=== PATIENT | female | born 1945 | race Caucasian/White ===

== ENCOUNTER → 2018-04-05 07:12 | Outpatient (CLI) | payer MEDICARE, SELFPAY ==
[2018-04-05 08:43] LABS: Add Manual Diff / Slide Review NO; Basophils Percent Auto 0.3 % (0-2); Hemoglobin 14.9 g/dL (12.0-16.0); Lymphocytes Percent Auto 21.9 % (25-40); Mean Corpuscular HGB Conc 35.4 % (30-36); Mean Corpuscular Hemoglobin 29.8 PG (26-34); Mean Corpuscular Volume 84.1 fL (80-100); Monocytes Percent Auto 7.5 % (3-14); Neutrophils Absolute Auto 4700 /uL (3000-5900); Neutrophils Percent Auto 67.3 % (50-75); Platelet Count 166 X10^3/uL (150-400); Red Blood Cell Count 4.99 X10^6/uL (4.0-5.2); Red Cell Distribution Width 13.5 % (11.6-14.8)
[2018-04-05 09:10] LABS: Alanine Aminotransferase 47 IU/L (9-52); Albumin 4.6 g/dL (3.5-5.0); Alkaline Phosphatase 76 U/L (38-126); Aspartate Aminotransferase 33 IU/L (14-36); BUN Creatinine Ratio 18.6 (6-22); Bilirubin Total 1.3 mg/dL (0.2-1.3); Calcium 9.9 mg/dL (8.4-10.2); Cholesterol 168 mg/dL (140-199); Estimated Glomerular Filt Rate > 60.0 mL/min (>60); Globulin 2.3 g/dL (1.7-4.1); Glucose 99 mg/dL (80-110); HDL Cholesterol 49 mg/dL (40-60); HEMOLYSIS < 15 (0-50); LDL Cholesterol Calculated 88 mg/dL (<100); Potassium 4.2 mmol/L (3.4-5.1); Sodium 133 mmol/L (137-145); Total Protein 6.9 g/dL (6.3-8.2); Triglycerides 155 mg/dL (35-150)
== END ==
PROVIDERS: PCP Internal Medicine; Visit Provider Internal Medicine
DX: I10 Essential (primary) hypertension (principal); E78.00 Pure hypercholesterolemia, unspecified
CPT/HCPCS: 36415; 80053; 80061; 85025

== ENCOUNTER → 2018-05-08 08:57 | Outpatient (CLI) | payer MEDICARE, SELFPAY ==
[2018-05-08 10:19] LABS: Influenza A and B by PCR Rapid Negative (Negative)
== END ==
PROVIDERS: Family Provider Internal Medicine; PCP Internal Medicine
DX: R68.89 Other general symptoms and signs (principal)
CPT/HCPCS: 87400

== ENCOUNTER 2018-05-23 08:41 | Day surgery (SDC) | payer MEDICARE, SELFPAY ==
[2018-05-23 09:09] VITALS: BP 124/73; PULSE 59; RESP 16; TEMP 37; O2SAT 97
[2018-05-23] MEDS: SODIUM CHLORIDE 0.9% 1,000 ML 200 ML IV (09:15)
--- NOTE | 2018-05-23 10:01 | PM.HP.1 ---
History of Present Illness Date Patient Seen: 05/23/18 Time Patient Seen: 10:01 Chief complaint: [id number] Narrative: [place] and pleasant lady in no distress. Her last colonoscopy was 5 years ago. She is here for a repeat due to a family history of colon cancer in her father. Patient History Surgical History Status post vaginal hysterectomy Family & Social History Family History: Reviewed 05/23/18 by Sarah Akhtar MD Social History: household members none Tobacco & Substance use: Smoking Status Never smoker Meds Home Medications Medication Instructions Recorded Confirmed Type Simvastatin (ZOCOR) 40 mg PO DAILY #0 03/13/12 05/23/18 History hydrochlorothiazide 25 mg PO DAILY #0 03/13/12 05/23/18 History ASPIRIN (Aspir-Low) 81 mg PO DAILY #0 09/12/12 05/23/18 History lisinopril 10 mg PO Q DAY #0 04/24/13 05/23/18 History meloxicam 1 tab PO EVERY OTHER DAY 05/08/18 05/23/18 History timolol 1 % EYE-BOTH DAILY 05/23/18 05/23/18 History Allergies Allergy/AdvReac Type Severity Reaction Status Date / Time iodine [IODINE] Allergy Unknown makes me Unverified 02/20/18 11:53 stop breathing Review of Systems Review of Systems All systems reviewed & are unremarkable except as noted in HPI and below Exam Vital Signs (past 8 hours): - 05/23/18 09:09 Temperature 98.6 F Pulse Rate 59 L Respiratory Rate 16 Blood Pressure 124/73 H Pulse Oximetry 97 Oxygen Delivery Method Room Air Narrative Exam Narrative: Very pleasant well-nourished well-developed lady in no distress HEENT: Normocephalic and atraumatic, pupils equal round reactive to light accommodation with anicteric sclera Lungs: Clear to auscultation bilaterally Heart: Regular rate and rhythm without murmur rub or gallop. Abdomen: Soft, nontender, active bowel sounds Extremities: Warm and well perfused Assessment & Plan Plan: Assessment/Plan Narrative: Very pleasant 72-year-old lady with a family history of colon cancer. We discussed the risks and benefits of colonoscopy and she has expressed a desire to complete the procedure today.
[2018-05-23] MEDS: MIDAZOLAM 5 MG/5 ML VIAL IV (10:16)
[2018-05-23] MEDS: fentaNYL 250 MCG/5 ML INJ IV (10:17)
--- NOTE | 2018-05-23 10:22 | PM.OP.1 ---
Operative Date/Time/Diagnoses Date of procedure: 05/23/18 Time of procedure: 10:22 Pre-op diagnosis: Family history of colon cancer Screening Post-op diagnosis: same Procedure & Clinicians Procedure: Colonoscopy to the cecum Same procedure as scheduled: Yes Indications: Last colonoscopy 5 years ago Surgeon: Sarah Akhtar Click Yes if Unassisted: Yes Anesthesia Type: Sedation (Versed 4 mg, fentanyl 200 mcg) Operative Notes Findings: 1. Excellent prep 2. No polyps or mass lesions 3. No AV malformations 4. Normal mucosa throughout 5. Scattered diverticula in the sigmoid region 6. Grade 1 internal hemorrhoids 7. Two very large external skin tags Closure Type: not applicable Specimen(s): none sent Procedure in detail: After obtaining informed consent, the patient was brought to the GI suite and placed in the left lateral decubitus position on the examination table. After placement of appropriate monitors, the patient was given incremental doses of Versed and Fentanyl until an appropriate level of sedation was achieved. A time out was held per SCOAP protocol. A digital rectal examination was performed and did not reveal any masses or obstructing lesions. The colonoscope was gently passed into the patient's anus and the entire colon navigated to the level of the cecum with minimal difficulty. Once in the cecum, the scope was withdrawn being sure to go before and beyond all mucosal folds and prominences and get an excellent examination. The findings are noted above. At the level of the rectal vault, the scope was retroflexed and the internal anal canal was examined. The scope was straightened and air aspirated from the colon. The instrument was removed from the patient's body and the procedure was concluded. The patient was allowed to awaken from sedation without difficulty and taken to the post-anesthesia care unit in good condition. Total sedation time 16 min Total withdrawal time 8 min 9 sec Complications: none Condition: stable Disposition: PACU Plan for aftercare: 1. Discharge to home 2. Plan for next colonoscopy in 5 years or as clinically indicated
[2018-05-23 10:25] VITALS: BP 109/61; PULSE 66; RESP 12; TEMP 36; O2SAT 97
[2018-05-23 10:30] VITALS: BP 87/54; PULSE 57; RESP 10; O2SAT 94
[2018-05-23 10:35] VITALS: BP 91/57; PULSE 57; RESP 20; O2SAT 95
[2018-05-23 10:40] VITALS: BP 104/67; PULSE 59; RESP 13; TEMP 36; O2SAT 98
[2018-05-23 10:50] VITALS: BP 101/68; PULSE 64; RESP 16; TEMP 36.1; O2SAT 97
--- NOTE | 2018-05-23 11:47 | SUR.PHASEII ---
1109: Discharge instructions reviewed with both Pt and ride home, friend Jesus. All discharge instructions reviewed, IV D\C'd with cannula intact and Pt stable and ready for discharge home and has met discharge criteria.
== END 2018-05-23 11:12 ==
LOC: ENDO 08:42
PROVIDERS: Family Provider Internal Medicine; PCP Internal Medicine; Visit Provider Surgery
PROC: 0DJD8ZZ Inspection of Lower Intestinal Tract, Via Natural or Artificial Opening Endoscopic (ICD-10-PCS; CPT 45378; principal; 2018-05-23 09:45)
DX: Z12.11 Encounter for screening for malignant neoplasm of colon (principal); Z80.0 Family history of malignant neoplasm of digestive organs; K57.30 Diverticulosis of large intestine without perforation or abscess without bleeding; K64.0 First degree hemorrhoids; K64.4 Residual hemorrhoidal skin tags
CPT/HCPCS: G0105; 99152; J2250; J3010

== ENCOUNTER → 2019-09-29 08:36 | Outpatient (CLI) | payer MEDICARE, SELFPAY ==
[2019-09-29 09:53] LABS: Carbon Dioxide 30 mmol/L (22-32); Chloride 93 mmol/L (98-107); HEMOLYSIS 16 (0-50); Potassium 4.4 mmol/L (3.4-5.1); Sodium 134 mmol/L (137-145)
[2019-09-29 09:54] LABS: Add Manual Diff / Slide Review NO; Basophils Absolute Auto 100 /uL (0-100); Eosinophils Absolute Auto 100 /uL (0-450); Eosinophils Percent Auto 1.4 % (2-4); Hematocrit 46.5 % (36-46); Hemoglobin 15.8 g/dL (12.0-16.0); Lymphocytes Absolute Auto 3000 /uL (1100-4500); Mean Corpuscular HGB Conc 34.1 % (30-36); Mean Corpuscular Hemoglobin 31.7 PG (26-34); Mean Corpuscular Volume 93.1 fL (80-100); Monocytes Absolute Auto 800 /uL (0-900); Monocytes Percent Auto 8.4 % (3-14); Neutrophils Absolute Auto 5400 /uL (1500-7000); Neutrophils Percent Auto 57.2 % (50-75); Platelet Count 420 X10^3/uL (150-400); Red Blood Cell Count 4.99 X10^6/uL (4.0-5.2); White Blood Cell Count 9.5 X10^3/uL (4.5-11.0)
== END ==
PROVIDERS: Family Provider Internal Medicine; PCP Internal Medicine; Visit Provider Orthopaedic Surgery
DX: Z01.812 Encounter for preprocedural laboratory examination (principal); M17.11 Unilateral primary osteoarthritis, right knee; Z01.818 Encounter for other preprocedural examination
CPT/HCPCS: 36415; 80051; 85025; 93005

== ENCOUNTER 2019-10-04 14:53 | Observation (INO) | payer MEDICARE, SELFPAY ==
[2019-10-01 08:55] VITALS: BMI 26.6
[2019-10-03] VITALS (10 sets, daily range): BP systolic 127–145; BP diastolic 68–83; PULSE 59–74; RESP 13–20; TEMP 36.4–37.2; O2SAT 93–98; BMI 26.6
--- NOTE | 2019-10-03 06:00 | DI.RAD.S_ITS ---
PROCEDURE: XR KNEE RT 1TO2V INDICATIONS: post op TECHNIQUE: 2 view(s) of the knee acquired. COMPARISON: None. FINDINGS: Bones: Patient is status post knee joint arthroplasty. Hardware components are in expected positions. Visualized bony structures are intact. Soft tissues: Overlying postoperative changes are noted. IMPRESSION: Post right total knee arthroplasty changes with anatomic right knee alignment. Dictated by: Juan Hurtado M.D. on 10/03/2019 at 17:29 Approved by: Juan Hurtado M.D. on 10/03/2019 at 17:29
[2019-10-03] MEDS: LACTATED RINGERS 1,000 ML 42 ML IV ×2 (12:22→15:56)
[2019-10-03] MEDS: ACETAMINOPHEN 325 MG TABLET 975 MG PO ×2 (12:25→22:21)
[2019-10-03] MEDS: PREGABALIN 75 MG CAPSULE PO (12:25)
[2019-10-03] MEDS: CELECOXIB 200 MG CAPSULE PO (12:25)
--- NOTE | 2019-10-03 14:07 | P.OP_ITS ---
Operative Date/Time/Diagnoses Date of procedure: 10/03/19 Time of procedure: 16:05 Pre-op diagnosis: Right knee osteoarthritis Post-op diagnosis: same Procedure & Clinicians Procedure: Right total knee arthroplasty Same procedure as scheduled: Yes Indications: The patient presents today for total knee arthroplasty after failure of conservative treatment. The nature of the procedure including the risks and benefits, alternatives, postoperative course and expected outcome were discussed and all questions answered. Consent was obtained. Operative site confirmed and marked. Surgeon: Luisito Dunlap Associate Loan Officer: Tony Arrington Anesthesia Type: General, Spinal and Local Operative Notes Findings: Severe osteoarthritis with varus alignment. Closure Type: primary Specimen(s): none sent Prosthetic devices, grafts, tissues, transplants, or devices: [employer] BCS: 4 femoral component, 3 tibial component, 9 mm BCS polyethylene tray and 29 x 7.5 mm round patella Applied: implant(s) Estimated Blood Loss (mL): 10 Blood products transfused: none Tourniquet time (min): 47 Procedure in detail: The patient was taken to the operative suite and placed under general and spinal anesthesia. The patient was given prophylactic antibiotics prior to surgery. The patient was also given tranexamic acid, 1 g, just prior to surgery for postoperative hemostasis. The lateral knee was prepped and the joint injected with 20 mL of 1% Lidocaine with epinephrine. The knee was then prepped and draped in usual sterile fashion. The leg was exsanguinated with an Esmarch dressing and the tourniquet raised to 250 torr. A 15 cm anterior incision was made. Next a medial trivector arthrotomy was made. The extensor mechanism was marked to ensure accurate repair. Initial exposing dissection was carried out medially and laterally. The knee was then flexed and the intramedullary femoral guide justin placed. The distal femoral cut was made in 6? of valgus at the +0 position. The femoral size was measured and the appropriate cutting block was then placed and the anterior, posterior and chamfer cuts made. The intramedullary tibial alignment justin was then placed. The guide was set to remove approximately 10 mm from the less affected lateral side. The proximal tibial cut was then made with an oscillating saw. All meniscus and bony debris was then removed. Posterior femoral osteophytes removed with a curved osteotome. Flexion extension gaps were checked. No specific balancing was required other than routine exposure and removal of osteophytes. The soft tissues were then injected with a combination of 20 mL of half percent Marcaine with epinephrine and 20 mL of Exparel. The trial components were then placed. The knee was then extended and the patellar thickness was measured and a cut made removing approximately 7-8 mm of bone. The patella was then sized and drilled. Some excess lateral bone was excised and the patellofemoral ligament released. The knee went into full extension and flexion beyond 120?. There was excellent medial-lateral balance throughout motion. Patellar tracking was excellent. The trial components were removed and the knee was cleansed with Pulsavac irrigation and dried. The final components were cemented with high viscosity vacuum mixed bone cement with antibiotics. The joint was filled with a dilute Betadine solution. The knee was held in extension and the patellar clamped until the cement was adequately cured. The knee was then irrigated. The extensor mechanism was closed with 5 interrupted #1 Vicryl sutures and a running Quill suture at approximately 90 degrees of flexion. The joint was then injected with a combination of 1 g of tranexamic acid and 20 mL of quarter per cent Marcaine with epinephrine. The subcutaneous tissue was closed with 2 0 Vicryl. The skin was closed with kalyn and surgical adhesive. An Aquacel dressing and Blade wrap were then applied. The patient tolerated the procedure well and was returned to recovery room in good condition. Complications: none Post-operative Condition: stable Disposition: PACU Plan for aftercare: [facility] protocol for total knee arthroplasty.
--- NOTE | 2019-10-03 14:07 | PM.PREOP ---
Pre-operative Note Interval Note History & Physical reviewed/Exam performed by Physician: Yes Changes to H&P: No
[2019-10-03] MEDS: CEFAZOLIN 2 GM/100 ML FROZ.PIGGY IV ×2 (14:44→22:19)
[2019-10-03] MEDS: LIDOCAINE 1% W/EPI 20 ML INJ (15:00)
[2019-10-03] MEDS: TRANEXAMIC ACID 1,000 MG VIAL 1000 MG IV (15:09)
--- NOTE | 2019-10-03 15:16 | SUR.OPER ---
Supine on padded OR bed. Pillow under head, arms secured on padded armboards <90 degree abduction. Safety belt across torso. Non-operative leg secured with tape over blanket over lower leg. Operative leg secured in DeMayo/Griffin positioner. Foam padded brace at thigh of operative leg.
[2019-10-03] MEDS: BUPIVACAINE 0.25% W/ EPI (PF) 20 ML, TRANEXAMIC ACID 1,000 MG, SODIUM CHLORIDE 0.9% 10 ML INJ (15:23)
[2019-10-03] MEDS: BUPIVACAINE 0.25% W/ EPI (PF) 40 ML, BUPIVACAINE LIPOSOME 266 MG, SODIUM CHLORIDE 0.9% ... INJ (15:23)
--- NOTE | 2019-10-03 16:32 | SUR.PHASEI ---
Continues sleeping 1632 - dc'd own airway, drowsy, denies pain, nausea. Skin warm and dry, resp unlabored, pleasant.
--- NOTE | 2019-10-03 16:47 | SUR.PHASEI ---
Report called to floor. Pt denies pain, nausea. VSS. Stable and pleasant, drowsy.
--- NOTE | 2019-10-03 17:06 | SUR.PHASEI ---
1653 to room 225, bed down and locked, call light within reach, SCD's on, RN will observe RA sat and put on O2 as needed. Pt awake, oriente, pleasant, no pain/nausea, asking for food and joking with staff. Clothing bag to room. Stable.
[2019-10-03] MEDS: LACTATED RINGERS 1,000 ML 125 ML IV (17:22)
[2019-10-03] MEDS: ASPIRIN EC 81 MG TABLET PO (22:20)
[2019-10-03] MEDS: IBUPROFEN 400 MG TABLET PO (22:21)
[2019-10-03] MEDS: LATANOPROST 0.005% OPHTH 2.5 ML 1 DROPS EYE-BOTH (22:22)
[2019-10-03] MEDS: SIMVASTATIN 40 MG TABLET PO (22:22)
[2019-10-03] MEDS: ONDANSETRON 4 MG/2 ML INJ IV (22:30)
[2019-10-04] VITALS (7 sets, daily range): BP systolic 113–134; BP diastolic 57–79; PULSE 51–73; RESP 16–19; TEMP 36.7–37.3; O2SAT 94–97
[2019-10-04] MEDS: IBUPROFEN 400 MG TABLET PO ×5 (01:01→20:50)
[2019-10-04] MEDS: LACTATED RINGERS 1,000 ML 125 ML IV (02:41)
[2019-10-04] MEDS: METOCLOPRAMIDE 10 MG/2 ML INJ IV (05:27)
[2019-10-04 05:57] LABS: Hematocrit 39.7 % (36-46); Hemoglobin 13.5 g/dL (12.0-16.0)
[2019-10-04] MEDS: CEFAZOLIN 2 GM/100 ML FROZ.PIGGY IV (06:17)
--- NOTE | 2019-10-04 09:28 | P.DS_ITS ---
History of Present Illness History of Present Illness Date Patient Seen: 10/04/19 Time Patient Seen: 09:28 Chief complaint: [id number] Narrative: Postop day 1 right total knee arthroplasty with Dr. Dunlap. Patient doing well this morning pain is controlled on oral medications. She has not been out of bed with physical therapy yet. Denies fevers chills nausea vom iting. Hoping to get out of bed soon would like to get to the restroom and brush her teeth. Discharge Providers Provider Date of admission: 10/03/19 11:39 Discharge Date: 10/04/19 Primary care physician: Luis Henderson MD Consults: 10/03/19 16:59 Consult to Discharge Planning Routine Comment: Consult to Physical Therapy Evaluate & Treat Comment: Physician Instructions: postop TKA protocol Consult to Respiratory Therapy Evaluate & Treat Comment: Physician Instructions: Evaluate and treat Discharge provider: Letitia Allen MD Summary Hospital Course Discharge Diagnosis: Right knee arthritis Hospital Course: Patient was admitted to the hospital status post right total knee arthroplasty with Dr. Dunlap. Tolerated p.o. diet on the floor in her pain has been controlled. Patient will be mobilized with therapy today, if does well anticipate discharge home today versus tomorrow if needs more time. Patient does have help at home and has friends coming later today that would be available. Patient is I[facility] path and has her medications at home. Status at Discharge Cognitive/behavioral status at discharge: oriented Functional status at discharge: uses cane/walker Overall status at discharge: patient is progressing back to baseline Time Spent with Patient Time spent: Less than 30 minutes Exam Vital Signs (past 8 hours): - 10/04/19 04:15 10/04/19 08:00 Temperature 98.9 F 98.0 F Pulse Rate 63 64 Respiratory Rate 16 16 Blood Pressure 134/79 125/64 Pulse Oximetry 96 96 Oxygen Delivery Method Nasal Cannula Oxygen Flow Rate 0 Narrative Exam Narrative: General: Alert oriented no acute distress HEENT exam: Normocephalic atraumatic Respiratory exam: Unlabored on room air Musculoskeletal exam: Moving upper extremities full range of motion no pain. Right lower extremity Blade wrap an Aquacel in place. Thigh is soft. Calf is soft. Demonstrates 5/5 dorsiflexion plantar flexion. SCDs in place. Sensation grossly intact to light touch. Brisk capillary refill. Objective Labs Result Diagrams: 10/04/19 05:45 Labs: Laboratory Results - last 24 hr 10/04/19 05:45 Hgb 13.5 Hct 39.7 Discharge Plan Discharge Plan Patient Disposition: Home Discharge orders & Medications Prescriptions: New aspirin 81 mg Tablet,Delayed Release (Dr/Ec) 81 mg PO BID Qty: 60 RF: 0 Continued simvastatin 40 mg Tablet 40 mg PO BEDTIME Qty: 0 RF: 0 hydrochlorothiazide 12.5 MG tablet 25 mg PO BEDTIME Qty: 0 RF: 0 timolol 0.5 % Drops 1 drp EYE-BOTH QAM RF: 0 latanoprost 0.005 % Drops 1 drp EYE-BOTH BEDTIME RF: 0 meloxicam 15 mg Tablet 15 mg PO DAILY RF: 0 lisinopril 10 mg Tablet 10 mg PO DAILY RF: 0 Discontinued aspirin 81 mg Tablet,Delayed Release (Dr/Ec) 81 mg PO DAILY Qty: 0 RF: 0 Follow up/Referrals: Luisito Dunlap MD [Physician] - (Patient has appointment 10/08/2019) Luis Henderson MD [Primary Care Provider] - Diet/Activity/Treatments Diet: Diet as Tolerated Activity: Weightbear as tolerated Skin/Wound/Dressing Care Report to your healthcare provider any signs of infection, such as:: chills, fever, night sweats, increased pain, unusual drainage and unusual redness Dressing: Keep incision clean dry and intact. May shower with Aquacel dressing Visit Report/Discharge Packet Instructions: DI for Knee Replacement Discharge Data Primary Care Provider: Luis Henderson V Quality VTE Deep Vein Thrombosis/Pulmonary Embolism Present on Admission: No
[2019-10-04] MEDS: TIMOLOL 0.5% OPHTH 1 DROPS EYE-BOTH (09:55)
[2019-10-04] MEDS: ASPIRIN EC 81 MG TABLET PO ×2 (09:57→20:49)
[2019-10-04] MEDS: ACETAMINOPHEN 325 MG TABLET 975 MG PO ×3 (09:57→20:49)
--- NOTE | 2019-10-04 10:33 | PT.IIE ---
Current Diagnoses Unilateral primary osteoarthritis, right knee (10/03/19) Surgery Performed Operation Date: 10/03/19 13:45 Actual Procedures p Total Knee Arthroplasty(Right) - Luisito Dunlap MD Surgical History (Last Updated 10/01/19 @ 09:34 by Carla Olivas RN) History of colonoscopy (Acute) Hx of bilateral cataract extraction (Acute) Hx of oral surgery (Acute ~1996) Hx of tonsillectomy (Acute) Status post vaginal hysterectomy (~1975) Medical History (Last Updated 10/01/19 @ 09:24 by Carla Olivas RN) Depression (Acute) Glaucoma (Acute) Herniated disc (Acute) HLD (hyperlipidemia) (Acute) HTN (hypertension) (Acute) Osteoarthritis (Acute) Osteopenia (Acute) Pneumonia (Acute) Skin cancer (Acute) Physical Therapy Inpatient Evaluation/Re-Eval M1 PT/OT-IP Prior Functional Status Start: 10/04/19 12:49 Freq: NEEDED Status: Active Protocol: Document 10/04/19 12:50 [facility] (Rec: 10/04/19 13:07 [facility] [id number]) Medical Review Prior Functional Status Medical History Reviewed Yes Diet/Fluid Consistency Regular Communication WNL Mobility and Gait Indep without AD but reports she was limping quite a bit Activities of Daily Living and IADL's indep w/ADLs & home chores Social History Household Members none Living Arrangements House Number of Floors (Floors) Two Floors Number of Stairs To Enter/Railing? 1 LEEANN Home Environment Walk in Shower Home Equipment Front Wheel Walker,Raised Toilet Seat Without Armrests Employment Status Retired Additional Social History Comment Pt has friend that is able to assist until she leaves town Sunday night, but after that will be on her own. M2 PT-IP Current Condition Start: 10/04/19 12:49 Freq: NEEDED Status: Active Protocol: Document 10/04/19 12:50 [facility] (Rec: 10/04/19 13:07 [facility] [id number]) Physical Therapy Current Condition Current Condition Evaluation Date 10/04/19 Treatment Diagnosis R TKA Onset Date 10/03/19 Weight Bearing Status Weight Bearing Status Weight Bear as Tolerated M3 PT-IP Subjective Start: 10/04/19 12:49 Freq: NEEDED Status: Active Protocol: Document 10/04/19 12:50 [facility] (Rec: 10/04/19 13:07 [facility] [id number]) Subjective Physical Therapy Visit Type Type Initial Evaluation Visit Start Time 09:46 Visit Stop Time 10:33 Total Visit Minutes 47 Number of MANGLE TENDER Visits 0 Physical Therapy Visit Comments Patient Comments Pt reports she lives alone but her friend can stay with her until she leaves town Sunday night. Therapy Pain Assessment Pain When Pain Assessed During Mobility Pain Present Pain Present Pain Reported Location R knee Intensity 2 Scale Used Numeric (1 - 10) Pain Management Techniques Apply Cold,Re-positioning M4 PT-IP Mobility and Gait Start: 10/04/19 12:49 Freq: NEEDED Status: Active Protocol: Document 10/04/19 12:50 [facility] (Rec: 10/04/19 13:07 [facility] [id number]) PT-Bed Mobility Assessment Supine to Sit Supine to Sit Standby Assistance Scooting Scooting to Edge of Bed Standby Assistance PT-Transfer Assessment Sit to and From Stand Sit to and from Stand Contact Guard Assistance,Use of Upper Extremities Equipment Transfer Assistive Device Gait Belt,Front Wheeled Walker Orthotic/Prosthetic Devices or Brace: No Transfers Transfer Destination Chair Transfer Technique Stand Step Pivot Transfer Ability Level of Assist Contact Guard Assistance Comments Mobility Comments Pt stood from bed and transfered to chair to allow PT to adjust walker height. Pt was able to ambulate in rodriguez and to bathroom and stood from toilet CGA without use of grab bars. She was able to stand at sink SBA to brush her teeth and wash her face. Gait Assessment Gait Gait Assistance Required: Contact Guard Assist Distance (Feet) 100 Able to Maintain Weight Bearing Status Yes During Gait Assistive Devices Assistive Device Gait Belt,Front Wheeled Walker Orthotic/Prosthetic Devices or Brace: No Gait Deviations General Gait Pattern Antalgic,Decreased Stride Length,Step-to Gait Factors Limiting Gait Function Factors Limiting Gait Function Decreased Activity Tolerance, Decreased Strength,Limited Range of Motion,Pain Comments Gait Comments Pt able to amb down hallway with FWW with cueing for sequencing of LE and was able to navigate in bathroom CGA. PT-Balance Assessment Sitting Balance and Reactions Static Sitting Balance Ability Good Dynamic Sitting Balance Ability Good Standing Balance and Reactions Static Standing Balance Ability Good Dynamic Standing Balance Ability Good Device Used FWW M5 PT-IP Objective Assessments Start: 10/04/19 12:49 Freq: NEEDED Status: Active Protocol: Document 10/04/19 12:50 [facility] (Rec: 10/04/19 13:07 [facility] [id number]) Orientation Orientation/Cognition Level of Alertness Alert Orientation Name,Place,Situation Language Function Ability No Deficits Noted Safety Awareness Understands Safety Issues Memory Description No Deficits Noted Gross Range of Motion Lower Extremity ROM Assessment Right Impaired Strength Lower Extremity Strength Assessment Right Impaired Muscle Tone Muscle Tone WNL No M6 PT-IP Treatment Start: 10/04/19 12:49 Freq: NEEDED Status: Active Protocol: Document 10/04/19 12:50 [facility] (Rec: 10/04/19 13:07 [facility] [id number]) Physical Therapy Treatment Exercises Exercises Ankle Pumps Education Education Provided Weight Bearing Status,Post-Op Packet,Safety Other Treatments Other Treatment Performed discussed prep of meals with her friend there for the rest of the week M7 PT-IP Assessment and Plan Start: 10/04/19 12:49 Freq: NEEDED Status: Active Protocol: Document 10/04/19 12:50 [facility] (Rec: 10/04/19 13:07 [facility] [id number]) PT Summary Assessment and Plan Potential Rehabilitation Potential Good Status of Condition at Evaluation Evolving Summary Impairments Pain,ROM,Strength,Balance,Bed Mobility,Transfers,Gait, Activity Tolerance Progress Towards Goals Progressing Toward Goals Assessment Summary Pt presents day 1 s/p R TKA with good pain control at this time and limited pain with mobility. She is motivated to get home but is concerned that she will only have her friend there through sunday. She has 2 stories,b ut does not use the 2nd story. Pt will not have assist after Sunday and discussed some concerns with this as far of how to set up at home. Goals Bed Mobility Goal Independent Transfer Goal Independent Gait Goal Independent Gait Distance 150ft Other Goals up/down from 1 step Days to Meet Goals 4 Frequency of Treatment Frequency Of Treatment Twice a Day Treatment Plan Physical Therapy Treatment Plan Bed Mobility Training,Transfer Training,Gait Training, Therapeutic Exercise,Balance Retraining,Post Op Education, Discharge Planning,Hot or Cold Pack,Neuromuscular Re-ed, Manual Therapy Other Recommendations and Next Treatment up/down step, gait, TKA Focus exercise review, discuss OP PT plan Recommendations To Nursing Amount of Assist Needed 1 Person Assist Discharge Recommendations PT Discharge Recommendations Home with Assistance,Home Health,Outpatient PT Other Discharge Recommendations HH vs OP PT
[2019-10-04] MEDS: SODIUM CHLORIDE 0.9% FLUSH 10 ML IV ×2 (13:03→20:48)
[2019-10-04] MEDS: OXYCODONE IR 5 MG TABLET PO ×2 (14:23→20:50)
--- NOTE | 2019-10-04 14:41 | CM.DANOTE ---
DCP Assessment: EMR reviewed: Patient is a 74 yr old female who was admitted for Rt TKA preformed by Dr. watts. Patients PCP is Dr. Henderson. CM met with patient and patients friend Rianna at the bedside and explained CM role. Patient currently lives alone in a two level home but is able to stay on the ground floor where her bedroom, bathroom, kitchen and living room are. Patient was alert and oriented x3 during CM visit. Patient is I at baseline with all ADL's and drives her own vehicle. patients friend Rianna will be staying with the patient for the next four days to help with recovery. Patient also has a friend who lives near by Naida Resendiz who will be available once patients friend goes home as well as a son who lives locally. PT evaluation done and suggested home with assistance or possible HH once patients friend leaves. CM will look into possible HH options if patient is interested. I:1st: medicare 2nd: AARP Plan: D/C home with friend when medically stable. CM discussed HH options with patient and patient state that she should be fine at home with her friends and her son who lives near by. No D/C planning needs noted at this time CM department will Follow patient to determine if any new D/C planning needs arise prior to D/C. Kasandra Nash RN. Discharge Planning/Care Management CM Discharge Assessment Start: 10/04/19 14:37 Freq: Status: Active Protocol: Document 10/04/19 14:38 HS (Rec: 10/04/19 14:41 HS [id number]) Discharge Planning Assessment Assigned Flat Folder Kasandra Nash RN DPOA/Assigned Designee Name Ge Sheikh (son) Contact Information [phone] Advance Directives? Yes: Working on one History Provided By Patient Has Patient been admitted in last 30 No days? Prior Living Arrangements House Household Members none Type of transporation used prior to Drives own vehicle admit Independent with ADL's Yes Is patient alert and oriented? Yes Caregiver for Another No DME Already Rented / Owned Bath Bench,FWW / Walker,Cane Patient/Family Preference OP PT Therapy Discharge Plan Home Whiteboard Updated in Patient Room with Yes name and ext. # of Flat Folder Review Status In Process Next Review Type Continued Stay Review Pre-Anesthesia Assessment Start: 10/01/19 08:55 Freq: Status: Active Protocol: Document 10/01/19 08:55 CAB (Rec: 10/01/19 09:48 CAB [id number]) Pre-Anesthesia Assessment PAC Comment Pre-op EKG @ 09/29/[address] Mauricio. No prior EKG available for comparison. Pt is asymptomatic, ok to proceed Preferred Name Angy Patient Information Reviewed Via Phone Assessment Assessment Completed With Patient H&P Completed Within 30 Days Yes Diagnostic Results BMP/CMP,CBC,EKG Comment Labs/EKG @ 09/29/19 Primary Care Provider Luis Henderson Seen Specialist in Last 12 Months Yes Specialist Seen Technical Service Engineer,Orthopedist Comment PCP visit 03/11/19 scanned to record Primary Language Guinean Dater Assembler Required No Height 167.64 cm Weight 74.843 kg Body Mass Index (BMI) 26.6 Hearing Ability Normal Visual Impairment No Limitations Visual Assist None Dentition Type Teeth, Natural Present Barriers to Learning None Hx Anesthesia Reactions No Hx Family Anesthesia Reaction No Hx Malignant Hyperthermia No Hx Blood Transfusions No Anesthesia Review Requested Yes: Vika requested: abnormal pre-op EKG alcohol intake current alcohol intake frequency a few times a week Smoking Status Former smoker how long ago did patient quit smoking Quit 1968 Substance Use Type does not use Pain Present Pain Reported Musculoskeletal Symptoms Abnormal Gait,Difficulty Walking,Joint Pain History of Falling (Recent or History of No ) Patient is completely paralyzed or No completely immobile Comment My balance is shot Is patient on oxygen? No Does patient have HERCULES/SOB No Hx Sleep Apnea No CPAP/BIPAP use not prescribed Currently Taking a Beta Scott No Can You Climb a Flight of Stairs Without Yes SOB Hx Chest Pain No Hx SOB No Hx Syncope or Dizziness No Anti-Coagulant Therapy No Has a Medical Van Driver No Cardiac Testing No Hx Pacemaker/ICD No Pacemaker Rep Required? No Cardiac Clearance Received Not Applicable Diet Type At Home Regular dysphagia No Urinary Catheter Present No Hx Urinary Self Catheterization No Diabetes No Patient No Lactating No Hx Drug Resistant Organism No Presence of External or Internal Medical No Devices Have you traveled outside the [place] Yes: [place] 08/25/19-09/09/19 States in the last 30 days? Marital Status Lives With none Prior Living Arrangements House Number of Floors (Floors) Two Floors Support System Child/Children,Friend(s) Does the Patient Have Assistance After Yes Surgery Patient Discharge Plan Description Return Home Comment Friends will stay w/pt to assist with care at de Feels Safe in Current Environment Yes Been Physically Hurt or Threatened By a No Person in Current Environment Do you have thoughts of harming yourself None or others? Are you currently considering suicide? No Do you have a plan to hurt yourself or No Plan others? Do You Have Any Spiritual Beliefs That No May Affect Your HC Choices? Do You Have Any Cultural Practices That No May Affect Your HC Choices? Spiritual Referral None Who Can We Speak to About Patient's Care Family, friends Identifying Code for Release of Patient Declines to issue Information Health Care Proxy/Next of Kin Ge Sheikh (ex-) Health Care Proxy Emergency Contact Name Mitesh (son) Emergency Contact or [phone] Advance Directives? Yes: Working on one Power of Java Golden Gate Developer Yes Power of Java Golden Gate Developer Name Mitesh- Seferino Power of Java Golden Gate Developer PAC Instructions Do not shave/clip surgical site,Durable medical equipment ,Medications to take/avoid, Nasal antibiotic,No ETOH/ petroleum product on skin DOS, NPO,Pre-surgical wash,Sturdy shoes/comfortable clothes,Do not bring valuables and remove jewelry
--- NOTE | 2019-10-04 14:45 | PC.NURSE ---
Shift summary: Alert and oriented X3. Dressing/MIGUEL ÁNGEL wrap to R knee C/D/I. CMS+, PP+, feet pink/warm, cap refill <2 sec. Reporting increasing pain in R knee over the course of the day. Medicated with her first dose of Oxycodone (5 mg) approx. 1430. Tolerating PO's without issue, VSS. Saline locked IV. Resting back in bed now after ambulating in halls with PT, fresh ice to R knee. Able to make needs known and has been calling appropriately. Light within reach, bed alarm on.
--- NOTE | 2019-10-04 15:05 | PT.IPTN ---
Current Diagnoses Unilateral primary osteoarthritis, right knee (10/03/19) Surgery Performed Operation Date: 10/03/19 13:45 Actual Procedures p Total Knee Arthroplasty(Right) - Luisito Dunlap MD Physical Therapy Treatment Note M2 PT-IP Current Condition Start: 10/04/19 12:49 Freq: NEEDED Status: Active Protocol: Document 10/04/19 12:50 LR (Rec: 10/04/19 13:07 LR [id number]) Physical Therapy Current Condition Current Condition Evaluation Date 10/04/19 Treatment Diagnosis R TKA Onset Date 10/03/19 Weight Bearing Status Weight Bearing Status Weight Bear as Tolerated M3 PT-IP Subjective Start: 10/04/19 12:49 Freq: NEEDED Status: Active Protocol: Document 10/04/19 14:12 LJ (Rec: 10/04/19 15:04 LJ [email or web address]) Subjective Physical Therapy Visit Type Type Treatment Note Visit Start Time 14:12 Visit Stop Time 14:37 Total Visit Minutes 25 Physical Therapy Visit Comments Patient Comments Pt willing to do therapy Therapy Pain Assessment Pain When Pain Assessed During Mobility Pain Present Pain Present Pain Reported M4 PT-IP Mobility and Gait Start: 10/04/19 12:49 Freq: NEEDED Status: Active Protocol: Document 10/04/19 14:12 LJ (Rec: 10/04/19 15:04 LJ [id number]) PT-Bed Mobility Assessment Rolling Type of Rolling Log Rolling Level of Assist Standby Assistance Sit to Supine Sit to Supine Standby Assistance PT-Transfer Assessment Sit to and From Stand Sit to and from Stand Contact Guard Assistance,Use of Upper Extremities Equipment Transfer Assistive Device Gait Belt,Front Wheeled Walker Orthotic/Prosthetic Devices or Brace: No Transfers Transfer Destination Bed,Toilet Transfer Technique Stand Step Pivot Transfer Ability Level of Assist Contact Guard Assistance Comments Mobility Comments Pt CGA standing from chair. Ambulated in hallway and back to room then into toilet. Sit< >stand to/from toilet using grab bar and FWW. Pt SBA to CGA with min cueing Gait Assessment Gait Gait Assistance Required: Contact Guard Assist Distance (Feet) 100 Able to Maintain Weight Bearing Status Yes During Gait Assistive Devices Assistive Device Gait Belt,Front Wheeled Walker Orthotic/Prosthetic Devices or Brace: No Gait Deviations General Gait Pattern Antalgic,Decreased Stride Length,Step-to Gait Factors Limiting Gait Function Factors Limiting Gait Function Decreased Activity Tolerance, Decreased Strength,Limited Range of Motion,Pain Comments Gait Comments Pt CGA for ambulation in hallway. Pt using FWW properly and using proper posture during ambulation,. M5 PT-IP Objective Assessments Start: 10/04/19 12:49 Freq: NEEDED Status: Active Protocol: Document 10/04/19 12:50 LR (Rec: 10/04/19 13:07 [facility] [id number]) Orientation Orientation/Cognition Level of Alertness Alert Orientation Name,Place,Situation Language Function Ability No Deficits Noted Safety Awareness Understands Safety Issues Memory Description No Deficits Noted Gross Range of Motion Lower Extremity ROM Assessment Right Impaired Strength Lower Extremity Strength Assessment Right Impaired Muscle Tone Muscle Tone WNL No M6 PT-IP Treatment Start: 10/04/19 12:49 Freq: NEEDED Status: Active Protocol: Document 10/04/19 14:12 LJ (Rec: 10/04/19 15:04 LJ [id number]) Physical Therapy Treatment Education Education Provided Safety M7 PT-IP Assessment and Plan Start: 10/04/19 12:49 Freq: NEEDED Status: Active Protocol: Document 10/04/19 14:12 LJ (Rec: 10/04/19 15:04 LJ [id number]) PT Summary Assessment and Plan Potential Rehabilitation Potential Good Status of Condition at Evaluation Evolving Summary Impairments Pain,ROM,Strength,Balance,Bed Mobility,Transfers,Gait, Activity Tolerance Assessment Summary Pt with increased pain this afternoon. Ambulation in hallway same distance as morning. Discussed safet;y issues with pt for at hhome while alone. Next tx discuss OP PT arrangements and step trial Goals Bed Mobility Goal Independent Transfer Goal Independent Gait Goal Independent Gait Distance 150ft Other Goals up/down from 1 step Days to Meet Goals 4 Frequency of Treatment Frequency Of Treatment Twice a Day Treatment Plan Physical Therapy Treatment Plan Bed Mobility Training,Transfer Training,Gait Training, Therapeutic Exercise,Balance Retraining,Post Op Education, Discharge Planning,Hot or Cold Pack,Neuromuscular Re-ed, Manual Therapy Other Recommendations and Next Treatment up/down step, gait, TKA Focus exercise review, discuss OP PT plan Recommendations To Nursing Amount of Assist Needed 1 Person Assist Discharge Recommendations PT Discharge Recommendations Home with Assistance,Home Health,Outpatient PT Other Discharge Recommendations HH vs OP PT
--- NOTE | 2019-10-04 16:07 | PC.NURSE ---
Addendum entered by Dulce Billings R.N. 10/04/19 19:23: Remains up in recliner until after evening meal. Took 100% diet without any c/o nausea. Assist x 1 with walker to bed. Requires reminder to keep head up and stand tall. Blade wrap intact to right knee. Declines need for further analgesia. Ice to right knee. BL calf scd's in place. BL pedal pulses present with doppler BL. Bed alarm set and use of call light reinforced. Original Note: Pt awake and alert during bedside shift report. Resting quietly in bed with visitor present in room. O.T. arrives to mobilize and work with pt.
--- NOTE | 2019-10-04 16:12 | OT.IP.EVAL ---
Current Diagnoses Unilateral primary osteoarthritis, right knee (10/03/19) Surgery Performed Operation Date: 10/03/19 13:45 Actual Procedures p Total Knee Arthroplasty(Right) - Luisito Dunlap MD Past Medical History (Last Updated 10/01/19 @ 09:24 by Carla Olivas, RN) Depression (Acute) Glaucoma (Acute) Herniated disc (Acute) HLD (hyperlipidemia) (Acute) HTN (hypertension) (Acute) Osteoarthritis (Acute) Osteopenia (Acute) Pneumonia (Acute) Skin cancer (Acute) Surgical History (Last Updated 10/01/19 @ 09:34 by Carla Olivas RN) History of colonoscopy (Acute) Hx of bilateral cataract extraction (Acute) Hx of oral surgery (Acute ~1996) Hx of tonsillectomy (Acute) Status post vaginal hysterectomy (~1975) Occupational Therapy Inpatient Evaluation/Re-Eval M1 PT/OT-IP Prior Functional Status Start: 10/04/19 12:49 Freq: NEEDED Status: Active Protocol: Document 10/04/19 16:12 PJJordana (Rec: 10/04/19 18:10 HUNTER [id number]) Medical Review Prior Functional Status Medical History Reviewed Yes Diet/Fluid Consistency Regular Communication WNL Mobility and Gait Pt states she was walking without a device, but was limping due to knee pain. Activities of Daily Living and IADL's Pt states she was independent within all self care, IADLS including driving. Pt lives alone. Prior Functional Level (Other details) Pt volunteers at [facility] . Social History Household Members none Living Arrangements House Number of Floors (Floors) Two Floors Number of Stairs To Enter/Railing? 1 stair to enter, pt will stay on main level of home Home Environment Standard Height Toilet,Walk in Shower Home Equipment Front Wheel Walker,Raised Toilet Seat Without Armrests, Shower Seat with Backrest,Grab Bars In Shower Employment Status Retired Additional Social History Comment pt states she will borrow suction grab bar and shower seat. M2 OT-IP Current Condition Start: 10/04/19 17:50 Freq: Status: Active Protocol: Document 10/04/19 16:12 PJJordana (Rec: 10/04/19 18:10 NOEL [id number]) Occupational Therapy Current Condition Current Condition Evaluation Date 10/04/19 Treatment Diagnosis decr'd self care, IADLS s/p R TKA Diagnosis Onset Date 10/03/19 Post Operative Precautions Other Precautions fall risk Weight Bearing Status Weight Bearing Status Weight Bear as Tolerated M3 OT- IP Subjective and Pain Start: 10/04/19 17:50 Freq: Status: Active Protocol: Document 10/04/19 16:12 PJM (Rec: 10/04/19 18:10 PJM [id number]) OT- Subjective Occupational Therapy Visit Type Type Initial Evaluation Visit Start Time 15:27 Visit Stop Time 16:12 Total Visit Minutes 45 Notes Pt's friend will stay with her for 1 night after d/c and will assist with home setup and jig and fixture repairer. Occupational Therapy Visit Comments Patient Comments My knee feel pretty good right now. I had some oxycodone before you came. Patient/Caregiver Goals to return to independent living alone, to be able to walk without pain OT Pain Assessment Pain When Pain Assessed After Treatment Pain Present Pain Present Pain Reported Location R knee Intensity 5 Scale Used Numeric (1 - 10) Description Aching,Acute Pain Behaviors Guarding Management Techniques Apply Cold,Distraction, Elevation,Timing of Activity with Medications M4 OT- IP ADL's Start: 10/04/19 17:50 Freq: Status: Active Protocol: Document 10/04/19 16:12 PJM (Rec: 10/04/19 18:10 PJM [id number]) OT [id number] General Evaluation Self-Feeding Ability Independent OT ADL-Grooming General Evaluation Grooming Ability Standby Assistance Areas Needing Assistance Face Washing Comments OT Grooming Comments seated in chair OT ADL-Oral Care Comments Oral Care Comments did not occur OT ADL-Dressing General Eval Upper Body Dressing Ability Independent Lower Body Dressing Ability Independent Areas Needing Assistance Retrieving/Set-up of Clothing Comments OT Dressing Comments Provided education re: adapted techniques due to R knee pain/stiffness. 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 OT ADL-Toileting General Evaluation Toileting Ability Independent Comments OT Toileting Comments recommend incontinent pad as pt has urinary urgency at times OT ADL-Bathing Comments OT Bathing Comments provided education re: methods to reduce fall risk and equipt options M5 OT- IP IADL's Start: 10/04/19 17:50 Freq: Status: Active Protocol: Document 10/04/19 16:12 PJM (Rec: 10/04/19 18:10 PJM [id number]) OT-Instrumental Activities of Daily Living Deficits IADL Deficits Identified Deficits Home Safety Awareness Awareness of Need for Assistance at Home Good Awareness Ability to Problem Solve Emergency Able to Problem Solve Situations Home Safety Comments Provided education re: methods to carry objects, including food items, with FWW, optimal chair selection and use of cell phone as Lifeline at home . Medication Management Medication Management No Deficits Identified Money Management Money Management No Deficits Identified Meal Preparation Meal Preparation Comments Provided education re: adapted techniques with FWW Aviation Survival Technician Aviation Survival Technician Caregiver Provides Assist Aviation Survival Technician Comments friends to assist until pt able Driving Driving Caregiver Provides Assist Driving Comments friends to assist until pt able M6 OT- IP Functional Cognition Start: 10/04/19 17:50 Freq: Status: Active Protocol: Document 10/04/19 16:12 NOEL (Rec: 10/04/19 18:10 [facility] [id number]) Cognitive Factors Limiting Selfcare Function Cognitive Ability Level of Alertness Alert Patient Orientation Name,Age,Birthday,Month,Date, Year,Day of Week,Place, Situation Attention Span Ability Capable of Focused Attention, Capable of Sustained Attention Ability to Follow Commands Able to Follow One Step Commands Safety Awareness Underestimates Need for Assistance Problem Solving Ability Needs Assist to Identify Solutions Executive Function Ability Unable to Remember Details Cognitive Comments Cognitive Assessment Comments Pt appears mildly over sedated as she is having difficulty recalling some details about up coming appointments and needs min cues to problem solve adapted ADL/IADL techniques. Discussed with RN . Recommend bed/chair alarm. OT- Vision and Hearing OT- Hearing Assessment OT- Hearing Assessment WFL OT- Vision Assessment Visual Acuity WFL M7 OT- IP Mobility and Balance Start: 10/04/19 17:50 Freq: Status: Active Protocol: Document 10/04/19 16:12 NOEL (Rec: 10/04/19 18:10 [facility] [id number]) OT- Bed Mobility Assessment Supine to Sit Supine to Sit Assist Standby Assistance Scooting Scooting to Edge of Bed Standby Assistance OT-Transfer Assessment Sit to and From Stand Sit to and from Stand Contact Guard Assistance,1 Person Assistance Transfers Transfer Ability Contact Guard Assistance,1 Person Assistance Technique Transfer Destination Chair Transfer Technique Stand Step Pivot Devices Transfer Assistive Devices Gait Belt,Front Wheeled Walker OT- Gait Assessment Gait Gait Assistance Required: Contact Guard Assist Distance (Feet) 3 Assistive Devices Assistive Device Gait Belt,Front Wheeled Walker Comments Gait Ability Comments pt needs verbal cues for gait sequence OT- Balance Assessment Sitting Balance and Reactions Static Sitting Balance Ability Good Dynamic Sitting Balance Ability Good Standing Balance and Reactions Static Standing Balance Ability Good M8 OT- IP Objective Assessments Start: 10/04/19 17:50 Freq: Status: Active Protocol: Document 10/04/19 16:12 PJM (Rec: 10/04/19 18:10 PJM [id number]) OT Gross Range of Motion Upper Extremity Range of Motion Assessment Within Functional Limits OT Strength Upper Extremity Strength Assessment Within Functional Limits OT- Coordination Assessment Comments Coordination Comments BUE WFL OT-Muscle Tone Assessment Muscle Tone WNL Yes OT Sensation Assessment Comments Summary Comments Pt denies BUE deficits Edema Edema Present Edema Comments min+ edema R lower leg and foot M9 OT- IP Assessment and Plan Start: 10/04/19 17:50 Freq: Status: Active Protocol: Document 10/04/19 16:12 PJM (Rec: 10/04/19 18:10 PJM [id number]) OT Summary Assessment and Plan Potential Rehabilitation Potential Good Analytic Complexity at Evaluation Low Summary OT Impairments Pain Assessment Summary Low complexity OT assessment completed on this 74 yr old female s/p RTKA who lives alone. All OT education completed in one visit re: adapted ADL/IADL techniques and home safety. Provided education re: bathroom safety equipt options and long bath sponge provided at pt request. Pt plans to d/c home tomorrow with friend to stay with her for one night and then intermittent assist from friends and neighbors PRN. No further OT services needed. Frequency of Treatment Frequency Of Treatment Discharge Discharge Recommendations OT Discharge Recommendations Home with Assistance
[2019-10-04] MEDS: LATANOPROST 0.005% OPHTH 2.5 ML 1 DROPS EYE-BOTH (20:48)
[2019-10-04] MEDS: SIMVASTATIN 40 MG TABLET PO (20:49)
[2019-10-05 00:25] VITALS: BP 128/63; PULSE 63; RESP 16; TEMP 36.3; O2SAT 98
[2019-10-05] MEDS: IBUPROFEN 400 MG TABLET PO ×4 (00:35→12:15)
[2019-10-05] MEDS: OXYCODONE IR 5 MG TABLET PO ×2 (00:35→11:27)
[2019-10-05 04:00] VITALS: BP 125/58; PULSE 55; RESP 16; TEMP 36.4; O2SAT 97
[2019-10-05 07:55] VITALS: BP 139/77; PULSE 53; RESP 16; TEMP 36.5; O2SAT 99
[2019-10-05] MEDS: LISINOPRIL 10 MG TABLET PO (08:36)
[2019-10-05] MEDS: ACETAMINOPHEN 325 MG TABLET 975 MG PO (08:36)
[2019-10-05] MEDS: ASPIRIN EC 81 MG TABLET PO (08:36)
[2019-10-05] MEDS: TIMOLOL 0.5% OPHTH 1 DROPS EYE-BOTH (08:41)
[2019-10-05] MEDS: SODIUM CHLORIDE 0.9% FLUSH 10 ML IV (08:42)
--- NOTE | 2019-10-05 09:53 | CM.DPC ---
Addendum entered by JOHAN Child 10/05/19 15:00: ADD: Per PT, pt was able to work with them and was safe for d/c home via friend POV and no d/c planning needs at this time. Plan: Patient discharged home via friend POV and to stay tonight to assist and no SW needs at this time. JOHAN Child Addendum entered by JOHAN Child 10/05/19 13:52: ADD: Per PT, attempted to work with pt later this morning but she had dizziness and PT will attempt again this afternoon to determine if she is safe for d/c home this evening or in the morning pending her progress. BF Original Note: DCP Discharge Home Per Ortho MD, pt is medically stable to d/c home later today vs in the morning pending further PT/OT today and pain is controlled. No identified barriers to discharge and supportive friend to be bedside later this morning. Plan: SW to follow closely for further PT/OT assessment this morning towards determining if pt is safe for d/c home with friend support today vs tomorrow morning. JOHAN Child
--- NOTE | 2019-10-05 10:00 | PT-IP ANOTE ---
Pt had dizziness after shower with nursing and was resting in bed. Will check back with pt in PM.
[2019-10-05] MEDS: hydrOXYzine pamoate 25 MG CAPSULE PO (11:27)
[2019-10-05 13:00] VITALS: BP 117/65; PULSE 54; RESP 16; TEMP 36.6; O2SAT 99
--- NOTE | 2019-10-05 14:22 | PT.IPTN ---
Current Diagnoses Unilateral primary osteoarthritis, right knee (10/03/19) Surgery Performed Operation Date: 10/03/19 13:45 Actual Procedures p Total Knee Arthroplasty(Right) - Luisito Dunlap MD Physical Therapy Treatment Note M2 PT-IP Current Condition Start: 10/04/19 12:49 Freq: NEEDED Status: Discharge Protocol: Document 10/04/19 12:50 [facility] (Rec: 10/04/19 13:07 [facility] [id number]) Physical Therapy Current Condition Current Condition Evaluation Date 10/04/19 Treatment Diagnosis R TKA Onset Date 10/03/19 Weight Bearing Status Weight Bearing Status Weight Bear as Tolerated M3 PT-IP Subjective Start: 10/04/19 12:49 Freq: NEEDED Status: Discharge Protocol: Document 10/05/19 13:55 [facility] (Rec: 10/05/19 16:16 [facility] [id number]) Subjective Physical Therapy Visit Type Type Treatment Note Visit Start Time 13:55 Visit Stop Time 14:22 Total Visit Minutes 27 Number of ASSOCIATE AGENT INSURANCE SALES Visits 2 Physical Therapy Visit Comments Patient Comments Pt willing to do therapy, friend present during tx. Therapy Pain Assessment Pain When Pain Assessed During Mobility Pain Present Pain Present Pain Reported Location R knee Intensity 3 Scale Used Numeric (1 - 10) Pain Management Techniques Apply Cold,Re-positioning M4 PT-IP Mobility and Gait Start: 10/04/19 12:49 Freq: NEEDED Status: Discharge Protocol: Document 10/05/19 13:55 CLB (Rec: 10/05/19 16:16 [facility] [id number]) PT-Bed Mobility Assessment Supine to Sit Supine to Sit Standby Assistance Scooting Scooting to Edge of Bed Standby Assistance PT-Transfer Assessment Sit to and From Stand Sit to and from Stand Contact Guard Assistance,Use of Upper Extremities Equipment Transfer Assistive Device Gait Belt,Front Wheeled Walker Orthotic/Prosthetic Devices or Brace: No Transfers Transfer Destination Chair,Toilet Transfer Technique Stand Step Pivot Transfer Ability Level of Assist Standby Assistance,Contact Guard Assistance Comments Mobility Comments Pt is SBA-CGA for sit<>stand and bed mobility. Pt left in chair with friend present to assist pt with dressing. RN informed. Gait Assessment Gait Gait Assistance Required: Contact Guard Assist Distance (Feet) 100 Able to Maintain Weight Bearing Status Yes During Gait Assistive Devices Assistive Device Gait Belt,Front Wheeled Walker Orthotic/Prosthetic Devices or Brace: No Gait Deviations General Gait Pattern Antalgic,Decreased Stride Length,Step-to Gait Factors Limiting Gait Function Factors Limiting Gait Function Decreased Activity Tolerance, Decreased Strength,Limited Range of Motion,Pain Comments Gait Comments Pt CGA for gait with good safety awareness. Stair Climbing Assessment Evaluation Level of Assist On Stairs Contact Guard Assistance Devices Stair Climbing Assistive Devices Front Wheel Walker Technique/Endurance Stair Climbing Direction Ascend and Descend Stair Climbing Technique Step to Step Number of Steps Climbed 1 Stair Climbing Set # Repetitions (reps) 2 Comments Stair Climbing Comments Pt required Min A for first trial on stairs and cues for sequencing, then was able to climb step CGA with good sequencing. M5 PT-IP Objective Assessments Start: 10/04/19 12:49 Freq: NEEDED Status: Discharge Protocol: Document 10/04/19 12:50 [facility] (Rec: 10/04/19 13:07 [facility] [id number]) Orientation Orientation/Cognition Level of Alertness Alert Orientation Name,Place,Situation Language Function Ability No Deficits Noted Safety Awareness Understands Safety Issues Memory Description No Deficits Noted Gross Range of Motion Lower Extremity ROM Assessment Right Impaired Strength Lower Extremity Strength Assessment Right Impaired Muscle Tone Muscle Tone WNL No M6 PT-IP Treatment Start: 10/04/19 12:49 Freq: NEEDED Status: Discharge Protocol: Document 10/05/19 13:55 CLB (Rec: 10/05/19 16:16 CLB [id number]) Physical Therapy Treatment Exercises Exercises Ankle Pumps,Gluteal Sets,Heel Slides Education Education Provided Safety M7 PT-IP Assessment and Plan Start: 10/04/19 12:49 Freq: NEEDED Status: Discharge Protocol: Document 10/05/19 13:55 CLB (Rec: 10/05/19 16:16 CLB [id number]) PT Summary Assessment and Plan Summary Impairments Pain,ROM,Strength,Balance,Bed Mobility,Transfers,Gait, Activity Tolerance Assessment Summary Pt is SBA-CGA for all mobility and was able to climb one step with FWW on platform step CGA. Pt has OP PT scheduled for after gi. Goals Bed Mobility Goal Independent Transfer Goal Independent Gait Goal Independent Gait Distance 150ft Other Goals up/down from 1 step Days to Meet Goals 4 Frequency of Treatment Frequency Of Treatment Twice a Day Treatment Plan Physical Therapy Treatment Plan Bed Mobility Training,Transfer Training,Gait Training, Therapeutic Exercise,Balance Retraining,Post Op Education, Discharge Planning,Hot or Cold Pack,Neuromuscular Re-ed, Manual Therapy Recommendations To Nursing Amount of Assist Needed 1 Person Assist Discharge Recommendations PT Discharge Recommendations Home with Assistance,Home Health,Outpatient PT Other Discharge Recommendations HH vs OP PT
== END 2019-10-05 14:47 | disposition home or self-care (01) ==
LOC: AC 10-05 14:10 → OR 10-06 06:46 → AC 10-06 06:50 → OR 10-06 06:51
PROVIDERS: Admitting Provider Orthopaedic Surgery; Family Provider Internal Medicine; PCP Internal Medicine; Visit Provider Orthopaedic Surgery
PROC: 0SRC0JZ Replacement of Right Knee Joint with Synthetic Substitute, Open Approach (ICD-10-PCS; CPT 27447; principal; 2019-10-03 13:45)
DX: M17.11 Unilateral primary osteoarthritis, right knee (principal); G89.18 Other acute postprocedural pain; I10 Essential (primary) hypertension; E78.5 Hyperlipidemia, unspecified; F32.9 Major depressive disorder, single episode, unspecified; M19.90 Unspecified osteoarthritis, unspecified site; M85.80 Other specified disorders of bone density and structure, unspecified site
CPT/HCPCS: 27447; 36415; 64450; 73560; 85014; 85018; 94762; 97116; 97162; 97165; 97530; 97535; C1776; G0378; C9290; J0690; J1100; J2250; J2274; J2405; J2704; J2765; J3010

== ENCOUNTER → 2019-11-03 13:28 | Outpatient (CLI) | payer MEDICARE, SELFPAY ==
[2019-10-03 16:59] VITALS: BMI 26.6
--- NOTE | 2019-11-03 | DI.RAD.S_ITS ---
PROCEDURE: XR KNEE RT 3V INDICATIONS: RIGHT KNEE PAIN TECHNIQUE: 3 views of the knee were acquired. COMPARISON: [facility], , XR KNEE RT 1TO2V, 10/03/2019, 16:24. FINDINGS: Bones: No fractures or dislocations. No suspicious bony lesions. There is a right total knee arthroplasty in expected alignment with no amadou-prosthetic fracturing or lucency identified to suggest acute hardware complication. Soft tissues: There is a small knee joint effusion. No suspicious soft tissue calcifications. IMPRESSION: 1. Small right knee joint effusion. 2. Right total knee arthroplasty. 3. No convincing acute fracture or dislocation of the right knee identified. Consider followup radiographs in 7-10 days if there is continued clinical concern. Dictated by: Emmanuel Ulloa M.D. on 11/03/2019 at 15:07 Approved by: Emmanuel Ulloa M.D. on 11/03/2019 at 15:10
== END ==
PROVIDERS: PCP Internal Medicine; Visit Provider Internal Medicine
DX: M25.561 Pain in right knee (principal); M25.461 Effusion, right knee; Z96.651 Presence of right artificial knee joint
CPT/HCPCS: 73562

== ENCOUNTER 2019-12-03 09:57 | Day surgery (SDC) | payer MEDICARE, SELFPAY ==
[2019-10-03 16:59] VITALS: BMI 26.6
[2019-11-18 15:01] VITALS: BMI 27.4
[2019-12-03] VITALS (10 sets, daily range): BP systolic 101–138; BP diastolic 55–97; PULSE 70–89; RESP 14–19; TEMP 36.1–37.3; O2SAT 92–100; BMI 25.2
[2019-12-03] MEDS: LACTATED RINGERS 1,000 ML 42 ML IV (10:53)
--- NOTE | 2019-12-03 10:55 | SUR.PREOP ---
Dr. Dunlap informed that patient will be alone post-op; OK'd it, friend said that she could stay overnight if needed.
--- NOTE | 2019-12-03 11:14 | PM.PREOP ---
Pre-operative Note Interval Note History & Physical reviewed/Exam performed by Physician: Yes Changes to H&P: No
--- NOTE | 2019-12-03 11:14 | PM.OP.1 ---
Operative Date/Time/Diagnoses Date of procedure: 12/03/19 Time of procedure: 11:24 Pre-op diagnosis: Stiffness after right total knee arthroplasty Post-op diagnosis: same Procedure & Clinicians Procedure: Manipulation under anesthesia right knee Same procedure as scheduled: Yes Indications: The patient presents today for manipulation under anesthesia of her right total knee. The patient is about 8 weeks status post total knee replacement. There was a delay in starting her physical therapy and then she fell shortly after which has caused her to not get adequate motion. The nature of the procedure including the risks and benefits, alternatives, postoperative course and expected outcome were discussed and all questions answered. Consent was obtained. Operative site confirmed and marked. Surgeon: Luisito Dunlap Click Yes if Unassisted: Yes Anesthesia Type: General and Local Operative Notes Findings: Once the patient was under anesthesia range of motion was tested. Pre-manipulation range of motion was 7-85 ?. The knee was manipulated and lysis of adhesions was felt. Postmanipulation range of motion was 0-140 degrees with minimal pressure. The knee achieved 5-120 ? of motion with gravity alone. Closure Type: not applicable Specimen(s): none sent Blood products transfused: none Procedure in detail: The patient was taken to the operative suite and placed under IV sedation. The patient also received an abductor canal block. Once adequate anesthesia was obtained the range of motion was checked. The knee was injected with 10 mL of 1% lidocaine, 10 mL of 0.5% Marcaine and 8 mg of dexamethasone. The knee was then manipulated. Lysis of adhesions was felt during the manipulation. Moderate force was required. Postoperative range of motion was then measured as noted in the findings above. The patient tolerated the procedure well and was returned to recovery room in good condition. Complications: none Post-operative Condition: stable Disposition: same day surgery Plan for aftercare: Discharge to home. Patient will start physical therapy 3-5 days per week for the next 2 weeks. Follow up in 2 weeks.
--- NOTE | 2019-12-03 11:15 | SUR.OPER ---
Supine on padded OR bed, head on pillow, arms secured on padded arm boards at <90 degrees abduction, legs uncrossed, safety belt at thigh, tape over blanket over lower legs.
[2019-12-03] MEDS: LIDOCAINE 1% 30 ML INJ (11:22)
[2019-12-03] MEDS: BUPIVACAINE 0.5% (PF) VIAL 10 ML INJ (11:35)
[2019-12-03] MEDS: DEXAMETHASONE 10 MG/ML VIAL IV (11:36)
[2019-12-03] MEDS: fentaNYL 100 MCG/2 ML INJ IV (11:56)
[2019-12-03] MEDS: OXYCODONE/ACETAMINOPHEN 5/325 TABLET 1 TAB PO (11:58)
--- NOTE | 2019-12-03 12:21 | SUR.PHASEI ---
anxious to go home, L knee bandaid CDI, pain improving, denies nausea.
== END 2019-12-03 13:00 | disposition home or self-care (01) ==
PROVIDERS: PCP Internal Medicine; Visit Provider Orthopaedic Surgery
PROC: (CPT 27570; principal; 2019-12-03 11:45)
DX: M25.661 Stiffness of right knee, not elsewhere classified (principal); Z96.651 Presence of right artificial knee joint; W19.XXXA Unspecified fall, initial encounter
CPT/HCPCS: 27570; J1100; J2250; J3010

== ENCOUNTER → 2020-06-11 12:27 | Outpatient (CLI) | payer MEDICARE, SELFPAY ==
[2019-10-03 16:59] VITALS: BMI 26.6
== END ==
PROVIDERS: PCP Internal Medicine; Referring Provider Internal Medicine; Visit Provider Internal Medicine
DX: M85.852 Other specified disorders of bone density and structure, left thigh (principal); Z78.0 Asymptomatic menopausal state; Z82.62 Family history of osteoporosis
CPT/HCPCS: 77080

== ENCOUNTER → 2020-10-25 16:51 | Outpatient (CLI) | payer MEDICARE, SELFPAY ==
[2019-10-03 16:59] VITALS: BMI 26.6
--- NOTE | 2020-10-25 16:55 | DI.RAD.S_ITS ---
PROCEDURE: XR LUMBAR SPINE 2-3V INDICATIONS: ACUTE MIDLINE LOW BACK PAIN TECHNIQUE: 3 views of the lumbar spine were acquired. COMPARISON: [facility], , CHEST 2 VIEW, 11/13/2011, 10:20. FINDINGS: Bones: Mild T12 vertebral body compression fracture. The remaining vertebral body heights are preserved. Multilevel degenerative endplate sclerosis and spurring. Diffuse facet arthropathy. Severe narrowing of the L4-L5 disc space. Mild to moderate narrowing of the remaining lumbar disc spaces. There is levoscoliosis Soft tissues: Overlying bowel gas pattern is normal. No suspicious soft tissue calcifications. IMPRESSION: Mild T12 vertebral body compression fracture. This finding is age-indeterminate, possibly acute. It is new since 11/13/11 however no more recent comparison studies. Recommend clinical correlation to determine acuity. If clinical uncertainty persists, further evaluation with lumbar spine MRI could be performed to assess the presence of marrow edema. Dictated by: Lucas Jerry M.D. on 10/26/2020 at 8:11 Approved by: Lucas Jerry M.D. on 10/26/2020 at 8:14
== END ==
PROVIDERS: PCP Internal Medicine; Referring Provider Internal Medicine; Visit Provider Internal Medicine
DX: M54.5 Low back pain (principal); M48.54XA Collapsed vertebra, not elsewhere classified, thoracic region, initial encounter for fracture
CPT/HCPCS: 72100

== ENCOUNTER → 2021-03-29 19:37 | Outpatient (ROUT) | payer MEDICARE, SELFPAY ==
[2019-10-03 16:59] VITALS: BMI 26.6
[2021-03-29 20:16] LABS: Aspartate Aminotransferase 34 IU/L (14-36); BUN Creatinine Ratio 18.8 (6-22); Blood Urea Nitrogen 12 mg/dL (7-17); Calcium 9.7 mg/dL (8.4-10.2); Carbon Dioxide 29 mmol/L (22-32); Chloride 93 mmol/L (98-107); Cholesterol 168 mg/dL (140-199); Estimated Glomerular Filt Rate > 60.0 mL/min (>60); Glucose 93 mg/dL (80-110); HDL Cholesterol 46 mg/dL (40-60); HEMOLYSIS < 15 (0-50); LDL Cholesterol Calculated 91 mg/dL (<100); Potassium 4.1 mmol/L (3.4-5.1); Sodium 131 mmol/L (137-145); Triglycerides 153 mg/dL (35-150)
== END ==
PROVIDERS: PCP Internal Medicine; Visit Provider Internal Medicine
DX: I10 Essential (primary) hypertension (principal); E78.2 Mixed hyperlipidemia
CPT/HCPCS: 80048; 80061; 84450

== ENCOUNTER 2021-05-12 14:30 | Outpatient (RCR) | payer MEDICARE, SELFPAY ==
[2019-10-03 16:59] VITALS: BMI 26.6
--- NOTE | 2021-04-18 16:53 | PT.OIE ---
Current Diagnoses Low back pain (04/18/21) Unspecified abnormalities of gait and mobility (04/18/21) Past Medical History (Last Updated 10/01/19 @ 09:24 by Carla Olivas RN) Depression Glaucoma Herniated disc HLD (hyperlipidemia) HTN (hypertension) Osteoarthritis Osteopenia Pneumonia Skin cancer Past Surgical History (Last Updated 10/01/19 @ 09:34 by Carla Olivas RN) History of colonoscopy Hx of bilateral cataract extraction Hx of oral surgery (~1996) Hx of tonsillectomy Status post vaginal hysterectomy (~1975) Visit Care Team Role Provider Type Luis Henderson MD Attending Provider Physician Primary Care Provider Referring Provider Specialty: Internal Medicine Address: [address] [place] [address] Email: [email or web address] Physical Therapy Initial Evaluation PT-OP-A Visit Information Start: 04/18/21 16:11 Freq: Status: Active Protocol: Document 04/18/21 16:11 (Rec: 04/18/21 16:53 [email or web address]) Out-Patient Physical Therapy Visit Information Visit Information Visit Type Initial Evaluation Visit Start Time 13:45 Visit Stop Time 14:30 Total Visit Minutes 45 Visit Number 11/30 Number of STRADDLE BUGGY OPERATOR Visits 0 Evaluation Information Evaluation Date 04/18/21 Precautions Precautions multiple falls osteopenia PT-OP-B Current Condition Start: 04/18/21 16:11 Freq: Status: Active Protocol: Document 04/18/21 16:11 HH (Rec: 04/18/21 16:53 [email or web address]) Current Condition History of Current Condition Onset Date Since 10/25/20 Current Complaints LBP, decreased balance and multiple falls. History of Current Condition Tonia Freed) is a 75yo female here for her LBP started after her fall in October last year. She apparently fell on her back resulting T12 compression fracture who had to wear a TLSO for 6 weeks. Pt stated her pain at lower lumbar region starts to begin with significant stiffness in the morning. She noticed staying in one position tends to make her stiff. Recovering from a bend over position tends to hurt as well. Her balance is also affected who needs to use UE to push off from chair to stand up; using handrail for stair climbing and use of hiking sticks to walk on uneven ground. She stated walking, moving around and use of heat pad relieve her pain but not long. She normally likes to walk 2 miles a day. Prior Treatments and Tests Procedure: XR lumbar spine 2- 3V 10/25/20 IMPRESSION: Mild T12 vertebral body compression fracture & Severe narrowing of the L4-L5 disc space R TKA 2018, R knee FRANCK 2019 Treatment Goals Patient/Caregiver Goals 1. to regain her balance and able to walk on uneven ground 2. to decrease her LBP 3. not to have a fall again Personal Factors Other Personal Factors That May Effect osteopenia Therapy/Recovery previous falls PT-OP-C Subjective Start: 04/18/21 16:11 Freq: Status: Active Protocol: Document 04/18/21 16:11 (Rec: 04/18/21 16:53 [email or web address]) Patient Questionnaires Lower Extremity Functional Scale LEFS Score 23 LEFS Impairment 60 to 79% Impaired (Score 17- 31) Oswestry Low Back Index Oswestry Score 30 Oswestry Impairment 20 to 39% Impaired (Score 20- 39) OP-PT Pain Assessment Location LBP Pain Location Details L4L5 paraspinals Intensity 5 Scale Used Numeric (0 - 10) Description Aching Frequency Frequent Pain Aggravating Factors Activity,Standing,Sitting, Stair Climbing,Bending Pain Alleviating Factors Heat Other Pain Alleviating Factors walking, change of position PT-OP-D Balance Start: 04/18/21 16:11 Freq: Status: Active Protocol: Document 04/18/21 16:11 HH (Rec: 04/18/21 16:53 [email or web address]) Balance Tests Single Limb Standing Single Limb- Right 3,5,4 Single Limb- Left 5,7,8 PT-OP-F Manual Assessment Start: 04/18/21 16:11 Freq: Status: Active Protocol: Document 04/18/21 16:11 HH (Rec: 04/18/21 16:53 [email or web address]) Manual Assessments Soft Tissue Assessment Soft Tissue Mobility Assessment significant hypertoncity at bilateral lumbar paraspinals ( L3-L5) and L gluteal max and med PT-OP-H Neuro Start: 04/18/21 16:11 Freq: Status: Active Protocol: Document 04/18/21 16:11 (Rec: 04/18/21 16:53 [email or web address]) Sensation Evaluation Gross Sensation Gross Sensation WNL Deep Tendon Reflex & Clonus Assessment Deep Tendon Reflex Bilateral Achilles Deep Tendon Reflex 2+ Normal Bilateral Patellar Deep Tendon Reflex 2+ Normal PT-OP-K Range of Motion Start: 04/18/21 16:11 Freq: Status: Active Protocol: Document 04/18/21 16:11 (Rec: 04/18/21 16:53 [email or web address]) Lumbar Spine Range of Motion Lumbar Spine Active Degrees Comments toe touch test= able to reach ankle, lack of segmental flexion at lumbar region, stretching sesnsation noted. lateral flexion to R= 23 inches from floor lateral flexion to L= 23 inches from floor extension= shoulder at heels= pressure noted. pt has pain at L4L5 region in supine Hip Goniometric Range of Motion Hip Right Active Straight Leg Raise 90 Comments pain to descend her LE from SLR position Left Active Hip ROM WFL Yes Straight Leg Raise 88 Comments pain to descend her LE from SLR position PT-OP-M Strength Start: 04/18/21 16:11 Freq: Status: Active Protocol: Document 04/18/21 16:11 (Rec: 04/18/21 16:53 [email or web address]) Hip Strength Hip Manual Muscle Testing Right Flexion (L2) 4- Good- Extension (S1) 4- Good- Abduction 4- Good- Adduction 4- Good- Left Flexion (L2) 4- Good- Extension (S1) 4- Good- Abduction 4- Good- Adduction 4- Good- PT-OP-Q Treatments Start: 04/18/21 16:11 Freq: Status: Active Protocol: Document 04/18/21 16:11 (Rec: 04/18/21 16:53 [email or web address]) Therapeutic Exercises Supine Exercises tennis ball release Supine Exercise Name lumbar paraspinals Side bilateral Comments for hEP Sitting Exercises lumbar flexion stretch Equipment Used chair Reps/Minutes 3 sec hold x 5 Comments for HEP PT-OP-T Assessment and Plan Start: 04/18/21 16:11 Freq: Status: Active Protocol: Document 04/18/21 16:11 (Rec: 04/18/21 16:53 [email or web address]) Physical Therapy Assessment Rehab Potential Rehabilitation Potential Good Evaluation Complexity Number of Personal Factors/Comorbidities 1-2 Number of Body Systems Impaired 1-2 Clinical Presentation at Evaluation Stable Impairments Impairments Activity Tolerance,Balance, Functional Activities, Functional Mobility,Gait,Pain, Posture,ROM,Soft Tissue Mobility,Strength Goals balance Impairment decreased balance Short Term Goal (STG) pt will show improved single leg stability and strength in order for her to walk in community with 1 hiking stick only STG Duration 4 weeks [facility] Goal (LTG) pt will show improved single leg stability and strength in order for her to walk in uneven ground without hiking stick, LTG Duration 8 weeks activity tolerance Impairment unable to stand / sit >10 mins d/t LBP Short Term Goal (STG) pt will be able to stand to sit > 20mins without increase in LBP STG Duration 4 weeks Electric Clock Mechanic Goal (LTG) pt will be able to stand to sit > 30 mins without increase in LBP therefore she can watch TV/ read comfortably. LTG Duration 8 weeks Oswestry Impairment Pt scores 30 on Oswestry Short Term Goal (STG) pt will be able to improve her overall lumbar mobility and strength to score > 20 on Oswestry STG Duration 4 weeks Electric Clock Mechanic Goal (LTG) pt will be able to improve her overall lumbar mobility and strength to score > 15 on Oswestry LTG Duration 8 weeks LEFS Impairment pt scores 23 on LEFS Short Term Goal (STG) pt will show improved overall mobility and strength to score >40 on LEFS STG Duration 4 weeks Electric Clock Mechanic Goal (LTG) pt will show improved overall mobility and strength to score >50 on LEFS which represent a better quality o flife Assessment Summary Assessment Tonia Freed) is a 75 yo female here for her LBP which started after wearing a TLSO for her T12 compression fracture for 6 weeks. Upon assessment, pt presents signs of lumbar OA and lumbar strain . Her pain is primarily located at bilateral lumbar paraspinals L3-L5 which is very tender to pressure. Pt also shows limited segmental lumbar flexion with pain from transitional movements ( flexion<>extension) which is aligned with her x-ray finding with severe narrowing of the L4-L5 disc space. Pt will benefit from skilled therapy to restore her lumbar segmental mobility, stability and strength progressively followed by balance training, therefore pt can return to community with lower fall risks. Physical Therapy Plan Frequency and Duration Frequency of Treatment 2x/Week Duration of Treatment 8 weeks Plan of Care Start Date 04/18/21 Plan of Care End Date 06/17/21 Therapeutic Interventions Therapeutic Interventions Aquatic Therapy,Balance Training,Gait Training,Home Exercise Program,Joint Mobilizations,Manual Therapy, Neuromuscular Re-education, Patient/Caregiver Education, Self-Care/Home Management,Soft Tissue Mobilization,Taping, Therapeutic Activities, Therapeutic Exercises Modalities Cold Pack/Ice Massage,Electric Stimulation,Hot Packs, Infrared Therapy,Traction- Mechanical,Ultrasound Next Visit Focus/Plan Next Note Type Treatment Note Next Visit Plan check tennis ball relief starts with gentle pelvic tilt knee to chest glute stretch LTR bridging
--- NOTE | 2021-04-18 16:54 | PT.OPPOC ---
Physical, Occupational & Speech Therapy At [facility] Current Diagnoses Low back pain (04/18/21) Unspecified abnormalities of gait and mobility (04/18/21) Visit Care Team Role Provider Type Luis Henderson MD Attending Provider Physician Primary Care Provider Referring Provider Specialty: Internal Medicine Address: [address] [place] [address], [facility] Email: [email or web address] Plan Of Care PT-OP-T Assessment and Plan Start: 04/18/21 16:11 Freq: Status: Active Protocol: Document 04/18/21 16:11 (Rec: 04/18/21 16:53 [email or web address]) Physical Therapy Assessment Rehab Potential Rehabilitation Potential Good Evaluation Complexity Number of Personal Factors/Comorbidities 1-2 Number of Body Systems Impaired 1-2 Clinical Presentation at Evaluation Stable Impairments Impairments Activity Tolerance,Balance, Functional Activities, Functional Mobility,Gait,Pain, Posture,ROM,Soft Tissue Mobility,Strength Goals balance Impairment decreased balance Short Term Goal (STG) pt will show improved single leg stability and strength in order for her to walk in community with 1 hiking stick only STG Duration 4 weeks Auto Mechanics Teacher Goal (LTG) pt will show improved single leg stability and strength in order for her to walk in uneven ground without hiking stick, LTG Duration 8 weeks activity tolerance Impairment unable to stand / sit >10 mins d/t LBP Short Term Goal (STG) pt will be able to stand to sit > 20mins without increase in LBP STG Duration 4 weeks Jail Goal (LTG) pt will be able to stand to sit > 30 mins without increase in LBP therefore she can watch TV/ read comfortably. LTG Duration 8 weeks Oswestry Impairment Pt scores 30 on Oswestry Short Term Goal (STG) pt will be able to improve her overall lumbar mobility and strength to score > 20 on Oswestry STG Duration 4 weeks Jail Goal (LTG) pt will be able to improve her overall lumbar mobility and strength to score > 15 on Oswestry LTG Duration 8 weeks LEFS Impairment pt scores 23 on LEFS Short Term Goal (STG) pt will show improved overall mobility and strength to score >40 on LEFS STG Duration 4 weeks Jail Goal (LTG) pt will show improved overall mobility and strength to score >50 on LEFS which represent a better quality o flife Assessment Summary Assessment Tonia (Angy) is a 75 yo female here for her LBP which started after wearing a TLSO for her T12 compression fracture for 6 weeks. Upon assessment, pt presents signs of lumbar OA and lumbar strain . Her pain is primarily located at bilateral lumbar paraspinals L3-L5 which is very tender to pressure. Pt also shows limited segmental lumbar flexion with pain from transitional movements ( flexion<>extension) which is aligned with her x-ray finding with severe narrowing of the L4-L5 disc space. Pt will benefit from skilled therapy to restore her lumbar segmental mobility, stability and strength progressively followed by balance training, therefore pt can return to community with lower fall risks. Physical Therapy Plan Frequency and Duration Frequency of Treatment 2x/Week Duration of Treatment 8 weeks Plan of Care Start Date 04/18/21 Plan of Care End Date 06/17/21 Therapeutic Interventions Therapeutic Interventions Aquatic Therapy,Balance Training,Gait Training,Home Exercise Program,Joint Mobilizations,Manual Therapy, Neuromuscular Re-education, Patient/Caregiver Education, Self-Care/Home Management,Soft Tissue Mobilization,Taping, Therapeutic Activities, Therapeutic Exercises Modalities Cold Pack/Ice Massage,Electric Stimulation,Hot Packs, Infrared Therapy,Traction- Mechanical,Ultrasound Next Visit Focus/Plan Next Note Type Treatment Note Next Visit Plan check tennis ball relief starts with gentle pelvic tilt knee to chest glute stretch LTR bridging Plan of Care Dates Plan of Care Start Date 04/18/21 Plan of Care End Date 06/17/21 Electronically Signed by: Yue Chandler PT 04/18/21 1755 Please Sign and Return: I have reviewed this Plan of Care and certify that the skilled therapy services above are required to meet the patient?s needs. Physician Signature Date Printed Name and Credentials Clinical Instructor Signature Printed Name and Credentials
--- NOTE | 2021-04-21 14:26 | PT.OTN ---
Current Diagnoses Low back pain (04/21/21) Unspecified abnormalities of gait and mobility (04/21/21) Physical Therapy Treatment Note PT-OP-A Visit Information Start: 04/18/21 16:11 Freq: Status: Active Protocol: Document 04/21/21 13:47 HH (Rec: 04/21/21 14:26 [id number]) Out-Patient Physical Therapy Visit Information Visit Information Visit Type Treatment Note Visit Start Time 13:45 Visit Stop Time 14:35 Total Visit Minutes 50 Visit Number 12/31 Number of FEED MILL LAB TECHNICIAN Visits 0 PT-OP-B Current Condition Start: 04/18/21 16:11 Freq: Status: Active Protocol: Document 04/18/21 16:11 HH (Rec: 04/18/21 16:53 HH [email or web address]) Current Condition History of Current Condition Onset Date Since 10/25/20 Current Complaints LBP, decreased balance and multiple falls. History of Current Condition Tonia Freed) is a 75yo female here for her LBP started after her fall in October last year. She apparently fell on her back resulting T12 compression fracture who had to wear a TLSO for 6 weeks. Pt stated her pain at lower lumbar region starts to begin with significant stiffness in the morning. She noticed staying in one position tends to make her stiff. Recovering from a bend over position tends to hurt as well. Her balance is also affected who needs to use UE to push off from chair to stand up; using handrail for stair climbing and use of hiking sticks to walk on uneven ground. She stated walking, moving around and use of heat pad relieve her pain but not long. She normally likes to walk 2 miles a day. Prior Treatments and Tests Procedure: XR lumbar spine 2- 3V 10/25/20 IMPRESSION: Mild T12 vertebral body compression fracture & Severe narrowing of the L4-L5 disc space R TKA 2018, R knee FRANCK 2019 Treatment Goals Patient/Caregiver Goals 1. to regain her balance and able to walk on uneven ground 2. to decrease her LBP 3. not to have a fall again Personal Factors Other Personal Factors That May Effect osteopenia Therapy/Recovery previous falls PT-OP-C Subjective Start: 04/18/21 16:11 Freq: Status: Active Protocol: Document 04/21/21 13:47 HH (Rec: 04/21/21 14:26 [id number]) OP-PT Subjective Patient Comments Patient Comments I feel good by using the tennis ball release. So i hope i will get some stretches to f/u. Patient Reported Progress Improving PT-OP-D Balance Start: 04/18/21 16:11 Freq: Status: Active Protocol: Document 04/18/21 16:11 HH (Rec: 04/18/21 16:53 [email or web address]) Balance Tests Single Limb Standing Single Limb- Right 3,5,4 Single Limb- Left 5,7,8 PT-OP-F Manual Assessment Start: 04/18/21 16:11 Freq: Status: Active Protocol: Document 04/18/21 16:11 HH (Rec: 04/18/21 16:53 [email or web address]) Manual Assessments Soft Tissue Assessment Soft Tissue Mobility Assessment significant hypertoncity at bilateral lumbar paraspinals ( L3-L5) and L gluteal max and med PT-OP-H Neuro Start: 04/18/21 16:11 Freq: Status: Active Protocol: Document 04/18/21 16:11 HH (Rec: 04/18/21 16:53 [email or web address]) Sensation Evaluation Gross Sensation Gross Sensation WNL Deep Tendon Reflex & Clonus Assessment Deep Tendon Reflex Bilateral Achilles Deep Tendon Reflex 2+ Normal Bilateral Patellar Deep Tendon Reflex 2+ Normal PT-OP-K Range of Motion Start: 04/18/21 16:11 Freq: Status: Active Protocol: Document 04/18/21 16:11 HH (Rec: 04/18/21 16:53 [email or web address]) Lumbar Spine Range of Motion Lumbar Spine Active Degrees Comments toe touch test= able to reach ankle, lack of segmental flexion at lumbar region, stretching sesnsation noted. lateral flexion to R= 23 inches from floor lateral flexion to L= 23 inches from floor extension= shoulder at heels= pressure noted. pt has pain at L4L5 region in supine Hip Goniometric Range of Motion Hip Right Active Straight Leg Raise 90 Comments pain to descend her LE from SLR position Left Active Hip ROM WFL Yes Straight Leg Raise 88 Comments pain to descend her LE from SLR position PT-OP-M Strength Start: 04/18/21 16:11 Freq: Status: Active Protocol: Document 04/18/21 16:11 HH (Rec: 04/18/21 16:53 [email or web address]) Hip Strength Hip Manual Muscle Testing Right Flexion (L2) 4- Good- Extension (S1) 4- Good- Abduction 4- Good- Adduction 4- Good- Left Flexion (L2) 4- Good- Extension (S1) 4- Good- Abduction 4- Good- Adduction 4- Good- PT-OP-Q Treatments Start: 04/18/21 16:11 Freq: Status: Active Protocol: Document 04/21/21 13:47 (Rec: 04/21/21 14:26 [id number]) Therapeutic Exercises Supine Exercises knee to chest Side bilateral Reps/Minutes 10 x2 Comments for HEP pelvic tilt Side bilateral Reps/Minutes 10 x2 Comments verbal cues for PPT, for HEP Sidelying Exercises open book Sidelying Exercise Name opposite hand provides hip adduction. Reps/Minutes 8 x2 Comments for HEP Manual Therapy Treatment Soft Tissue Mobilization paraspinals Body Location L/S Mobilization Type Myofascial Release,Sustained Pressure,Trigger Point Release Intensity/Depth Moderate Body Position Prone Comments most discomfort at L5 region. improved at the end of session PT-OP-R Modalities Start: 04/18/21 16:11 Freq: Status: Active Protocol: Document 04/21/21 13:47 HH (Rec: 04/21/21 14:26 [id number]) Hot Pack/Cold Pack Treatment Hot Pack Location L/S Patient Position Hooklying Treatment Duration (minutes) 12 Patient Tolerance Good PT-OP-T Assessment and Plan Start: 04/18/21 16:11 Freq: Status: Active Protocol: Document 04/21/21 13:47 (Rec: 04/21/21 14:26 [id number]) Physical Therapy Assessment Goals balance Impairment decreased balance Short Term Goal (STG) pt will show improved single leg stability and strength in order for her to walk in community with 1 hiking stick only STG Duration 4 weeks Assisted Goal (LTG) pt will show improved single leg stability and strength in order for her to walk in uneven ground without hiking stick, LTG Duration 8 weeks activity tolerance Impairment unable to stand / sit >10 mins d/t LBP Short Term Goal (STG) pt will be able to stand to sit > 20mins without increase in LBP STG Duration 4 weeks Assisted Goal (LTG) pt will be able to stand to sit > 30 mins without increase in LBP therefore she can watch TV/ read comfortably. LTG Duration 8 weeks Oswestry Impairment Pt scores 30 on Oswestry Short Term Goal (STG) pt will be able to improve her overall lumbar mobility and strength to score > 20 on Oswestry STG Duration 4 weeks Nutrition Aide Goal (LTG) pt will be able to improve her overall lumbar mobility and strength to score > 15 on Oswestry LTG Duration 8 weeks LEFS Impairment pt scores 23 on LEFS Short Term Goal (STG) pt will show improved overall mobility and strength to score >40 on LEFS STG Duration 4 weeks Assisted Goal (LTG) pt will show improved overall mobility and strength to score >50 on LEFS which represent a better quality o flife Assessment Summary Assessment initiated manual therapy today and noticed pt has significant tonicty at parapsinals at L5 region but improved after. Introduced pelvic tilt, open book and knee to chest for flexion based ex and she polly very well . Will reassess her tolerance next visit. Physical Therapy Plan Frequency and Duration Frequency of Treatment 2x/Week Duration of Treatment 8 weeks Plan of Care Start Date 04/18/21 Plan of Care End Date 06/17/21 Therapeutic Interventions Therapeutic Interventions Aquatic Therapy,Balance Training,Gait Training,Home Exercise Program,Joint Mobilizations,Manual Therapy, Neuromuscular Re-education, Patient/Caregiver Education, Self-Care/Home Management,Soft Tissue Mobilization,Taping, Therapeutic Activities, Therapeutic Exercises Modalities Cold Pack/Ice Massage,Electric Stimulation,Hot Packs, Infrared Therapy,Traction- Mechanical,Ultrasound Next Visit Focus/Plan Next Note Type Treatment Note Next Visit Plan check tennis ball relief starts with gentle pelvic tilt knee to chest glute stretch LTR bridging
--- NOTE | 2021-04-25 14:32 | PT.OTN ---
Current Diagnoses Low back pain (04/25/21) Unspecified abnormalities of gait and mobility (04/25/21) Physical Therapy Treatment Note PT-OP-A Visit Information Start: 04/18/21 16:11 Freq: Status: Active Protocol: Document 04/25/21 13:47 HH (Rec: 04/25/21 14:32 [id number]) Out-Patient Physical Therapy Visit Information Visit Information Visit Type Treatment Note Visit Start Time 13:47 Visit Stop Time 14:45 Total Visit Minutes 53 Visit Number 01/28 Number of CERTIFIED PUBLIC ACCOUNTANT Visits 0 PT-OP-B Current Condition Start: 04/18/21 16:11 Freq: Status: Active Protocol: Document 04/18/21 16:11 HH (Rec: 04/18/21 16:53 HH [email or web address]) Current Condition History of Current Condition Onset Date Since 10/25/20 Current Complaints LBP, decreased balance and multiple falls. History of Current Condition Tonia Freed) is a 75yo female here for her LBP started after her fall in October last year. She apparently fell on her back resulting T12 compression fracture who had to wear a TLSO for 6 weeks. Pt stated her pain at lower lumbar region starts to begin with significant stiffness in the morning. She noticed staying in one position tends to make her stiff. Recovering from a bend over position tends to hurt as well. Her balance is also affected who needs to use UE to push off from chair to stand up; using handrail for stair climbing and use of hiking sticks to walk on uneven ground. She stated walking, moving around and use of heat pad relieve her pain but not long. She normally likes to walk 2 miles a day. Prior Treatments and Tests Procedure: XR lumbar spine 2- 3V 10/25/20 IMPRESSION: Mild T12 vertebral body compression fracture & Severe narrowing of the L4-L5 disc space R TKA 2018, R knee FRANCK 2019 Treatment Goals Patient/Caregiver Goals 1. to regain her balance and able to walk on uneven ground 2. to decrease her LBP 3. not to have a fall again Personal Factors Other Personal Factors That May Effect osteopenia Therapy/Recovery previous falls PT-OP-C Subjective Start: 04/18/21 16:11 Freq: Status: Active Protocol: Document 04/25/21 13:47 HH (Rec: 04/25/21 14:32 HH [id number]) OP-PT Subjective Patient Comments Patient Comments I did the ex 3 times during the day. I notice the rainy tends to get my back tight. Patient Reported Progress Improving PT-OP-D Balance Start: 04/18/21 16:11 Freq: Status: Active Protocol: Document 04/18/21 16:11 HH (Rec: 04/18/21 16:53 [email or web address]) Balance Tests Single Limb Standing Single Limb- Right 3,5,4 Single Limb- Left 5,7,8 PT-OP-F Manual Assessment Start: 04/18/21 16:11 Freq: Status: Active Protocol: Document 04/18/21 16:11 HH (Rec: 04/18/21 16:53 [email or web address]) Manual Assessments Soft Tissue Assessment Soft Tissue Mobility Assessment significant hypertoncity at bilateral lumbar paraspinals ( L3-L5) and L gluteal max and med PT-OP-H Neuro Start: 04/18/21 16:11 Freq: Status: Active Protocol: Document 04/18/21 16:11 HH (Rec: 04/18/21 16:53 [email or web address]) Sensation Evaluation Gross Sensation Gross Sensation WNL Deep Tendon Reflex & Clonus Assessment Deep Tendon Reflex Bilateral Achilles Deep Tendon Reflex 2+ Normal Bilateral Patellar Deep Tendon Reflex 2+ Normal PT-OP-K Range of Motion Start: 04/18/21 16:11 Freq: Status: Active Protocol: Document 04/18/21 16:11 HH (Rec: 04/18/21 16:53 [email or web address]) Lumbar Spine Range of Motion Lumbar Spine Active Degrees Comments toe touch test= able to reach ankle, lack of segmental flexion at lumbar region, stretching sesnsation noted. lateral flexion to R= 23 inches from floor lateral flexion to L= 23 inches from floor extension= shoulder at heels= pressure noted. pt has pain at L4L5 region in supine Hip Goniometric Range of Motion Hip Right Active Straight Leg Raise 90 Comments pain to descend her LE from SLR position Left Active Hip ROM WFL Yes Straight Leg Raise 88 Comments pain to descend her LE from SLR position PT-OP-M Strength Start: 04/18/21 16:11 Freq: Status: Active Protocol: Document 04/18/21 16:11 HH (Rec: 04/18/21 16:53 [email or web address]) Hip Strength Hip Manual Muscle Testing Right Flexion (L2) 4- Good- Extension (S1) 4- Good- Abduction 4- Good- Adduction 4- Good- Left Flexion (L2) 4- Good- Extension (S1) 4- Good- Abduction 4- Good- Adduction 4- Good- PT-OP-Q Treatments Start: 04/18/21 16:11 Freq: Status: Active Protocol: Document 04/25/21 13:47 (Rec: 04/25/21 14:32 [id number]) Therapeutic Exercises Supine Exercises bridging Reps/Minutes 5 Comments pain noted at T spine and lumbar spine, stop after 5 reps LTR Side bilateral Equipment Used red therapy ball Reps/Minutes 8 x2 Comments cues on eccentric control knee to chest Side bilateral Reps/Minutes 15sec hold x5 Comments for HEP pelvic tilt Side bilateral Reps/Minutes 10 x2 Comments verbal cues for PPT, for HEP tennis ball release Supine Exercise Name lumbar paraspinals Side bilateral Comments for hEP with peanut ball shape Sidelying Exercises open book Sidelying Exercise Name opposite hand provides hip adduction. Reps/Minutes 8 x2 Comments for HEP Sitting Exercises lumbar flexion stretch Reps/Minutes 5 sec hold x10 Comments stretching sensation, for HEP Manual Therapy Treatment Soft Tissue Mobilization paraspinals Body Location L/S Mobilization Type Myofascial Release,Sustained Pressure,Trigger Point Release Intensity/Depth Moderate Body Position Prone Comments most discomfort at L5 region. improved at the end of session PT-OP-R Modalities Start: 04/18/21 16:11 Freq: Status: Active Protocol: Document 04/25/21 13:47 (Rec: 04/25/21 14:32 [id number]) Hot Pack/Cold Pack Treatment Hot Pack Location L/S Patient Position Hooklying Treatment Duration (minutes) 12 Patient Tolerance Good PT-OP-T Assessment and Plan Start: 04/18/21 16:11 Freq: Status: Active Protocol: Document 04/25/21 13:47 (Rec: 04/25/21 14:32 [id number]) Physical Therapy Assessment Goals balance Impairment decreased balance Short Term Goal (STG) pt will show improved single leg stability and strength in order for her to walk in community with 1 hiking stick only STG Duration 4 weeks Snf Goal (LTG) pt will show improved single leg stability and strength in order for her to walk in uneven ground without hiking stick, LTG Duration 8 weeks activity tolerance Impairment unable to stand / sit >10 mins d/t LBP Short Term Goal (STG) pt will be able to stand to sit > 20mins without increase in LBP STG Duration 4 weeks Event Organizer Goal (LTG) pt will be able to stand to sit > 30 mins without increase in LBP therefore she can watch TV/ read comfortably. LTG Duration 8 weeks Oswestry Impairment Pt scores 30 on Oswestry Short Term Goal (STG) pt will be able to improve her overall lumbar mobility and strength to score > 20 on Oswestry STG Duration 4 weeks Event Organizer Goal (LTG) pt will be able to improve her overall lumbar mobility and strength to score > 15 on Oswestry LTG Duration 8 weeks LEFS Impairment pt scores 23 on LEFS Short Term Goal (STG) pt will show improved overall mobility and strength to score >40 on LEFS STG Duration 4 weeks Event Organizer Goal (LTG) pt will show improved overall mobility and strength to score >50 on LEFS which represent a better quality o flife Assessment Summary Assessment Pt responds to treatment well so far with good unerstanding of her HEP and improved lumbarpelvic movement. Physical Therapy Plan Frequency and Duration Frequency of Treatment 2x/Week Duration of Treatment 8 weeks Plan of Care Start Date 04/18/21 Plan of Care End Date 06/17/21 Therapeutic Interventions Therapeutic Interventions Aquatic Therapy,Balance Training,Gait Training,Home Exercise Program,Joint Mobilizations,Manual Therapy, Neuromuscular Re-education, Patient/Caregiver Education, Self-Care/Home Management,Soft Tissue Mobilization,Taping, Therapeutic Activities, Therapeutic Exercises Modalities Cold Pack/Ice Massage,Electric Stimulation,Hot Packs, Infrared Therapy,Traction- Mechanical,Ultrasound Next Visit Focus/Plan Next Note Type Treatment Note Next Visit Plan check tennis ball relief starts with gentle pelvic tilt knee to chest glute stretch LTR bridging
--- NOTE | 2021-04-28 12:03 | PT.OTN ---
Current Diagnoses Low back pain (04/28/21) Unspecified abnormalities of gait and mobility (04/28/21) Physical Therapy Treatment Note PT-OP-A Visit Information Start: 04/18/21 16:11 Freq: Status: Active Protocol: Document 04/28/21 11:17 HH (Rec: 04/28/21 12:01 [id number]) Out-Patient Physical Therapy Visit Information Visit Information Visit Type Treatment Note Visit Start Time 11:16 Visit Stop Time 12:10 Total Visit Minutes 54 Visit Number 02/28 Number of TRACTOR MECHANIC APPRENTICE Visits 0 PT-OP-B Current Condition Start: 04/18/21 16:11 Freq: Status: Active Protocol: Document 04/18/21 16:11 HH (Rec: 04/18/21 16:53 [email or web address]) Current Condition History of Current Condition Onset Date Since 10/25/20 Current Complaints LBP, decreased balance and multiple falls. History of Current Condition Tonia Freed) is a 75yo female here for her LBP started after her fall in October last year. She apparently fell on her back resulting T12 compression fracture who had to wear a TLSO for 6 weeks. Pt stated her pain at lower lumbar region starts to begin with significant stiffness in the morning. She noticed staying in one position tends to make her stiff. Recovering from a bend over position tends to hurt as well. Her balance is also affected who needs to use UE to push off from chair to stand up; using handrail for stair climbing and use of hiking sticks to walk on uneven ground. She stated walking, moving around and use of heat pad relieve her pain but not long. She normally likes to walk 2 miles a day. Prior Treatments and Tests Procedure: XR lumbar spine 2- 3V 10/25/20 IMPRESSION: Mild T12 vertebral body compression fracture & Severe narrowing of the L4-L5 disc space R TKA 2018, R knee FRANCK 2019 Treatment Goals Patient/Caregiver Goals 1. to regain her balance and able to walk on uneven ground 2. to decrease her LBP 3. not to have a fall again Personal Factors Other Personal Factors That May Effect osteopenia Therapy/Recovery previous falls PT-OP-C Subjective Start: 04/18/21 16:11 Freq: Status: Active Protocol: Document 04/28/21 11:17 HH (Rec: 04/28/21 12:01 [id number]) OP-PT Subjective Patient Comments Patient Comments the bridging is hard on me cause it's hurting. I am more mobile since i started doing stretches. Patient Reported Progress Improving PT-OP-D Balance Start: 04/18/21 16:11 Freq: Status: Active Protocol: Document 04/18/21 16:11 HH (Rec: 04/18/21 16:53 [email or web address]) Balance Tests Single Limb Standing Single Limb- Right 3,5,4 Single Limb- Left 5,7,8 PT-OP-F Manual Assessment Start: 04/18/21 16:11 Freq: Status: Active Protocol: Document 04/18/21 16:11 HH (Rec: 04/18/21 16:53 [email or web address]) Manual Assessments Soft Tissue Assessment Soft Tissue Mobility Assessment significant hypertoncity at bilateral lumbar paraspinals ( L3-L5) and L gluteal max and med PT-OP-H Neuro Start: 04/18/21 16:11 Freq: Status: Active Protocol: Document 04/18/21 16:11 HH (Rec: 04/18/21 16:53 [email or web address]) Sensation Evaluation Gross Sensation Gross Sensation WNL Deep Tendon Reflex & Clonus Assessment Deep Tendon Reflex Bilateral Achilles Deep Tendon Reflex 2+ Normal Bilateral Patellar Deep Tendon Reflex 2+ Normal PT-OP-K Range of Motion Start: 04/18/21 16:11 Freq: Status: Active Protocol: Document 04/18/21 16:11 HH (Rec: 04/18/21 16:53 [email or web address]) Lumbar Spine Range of Motion Lumbar Spine Active Degrees Comments toe touch test= able to reach ankle, lack of segmental flexion at lumbar region, stretching sesnsation noted. lateral flexion to R= 23 inches from floor lateral flexion to L= 23 inches from floor extension= shoulder at heels= pressure noted. pt has pain at L4L5 region in supine Hip Goniometric Range of Motion Hip Right Active Straight Leg Raise 90 Comments pain to descend her LE from SLR position Left Active Hip ROM WFL Yes Straight Leg Raise 88 Comments pain to descend her LE from SLR position PT-OP-M Strength Start: 04/18/21 16:11 Freq: Status: Active Protocol: Document 04/18/21 16:11 HH (Rec: 04/18/21 16:53 [email or web address]) Hip Strength Hip Manual Muscle Testing Right Flexion (L2) 4- Good- Extension (S1) 4- Good- Abduction 4- Good- Adduction 4- Good- Left Flexion (L2) 4- Good- Extension (S1) 4- Good- Abduction 4- Good- Adduction 4- Good- PT-OP-Q Treatments Start: 04/18/21 16:11 Freq: Status: Active Protocol: Document 04/28/21 11:17 (Rec: 04/28/21 12:01 [id number]) Therapeutic Exercises Supine Exercises bridging Reps/Minutes 5 Comments less pain with PPT, discontinue until next week knee to chest Side bilateral Reps/Minutes 15sec hold x5 Comments for HEP pelvic tilt Side bilateral Reps/Minutes 10 x2 Comments verbal cues for PPT, for HEP Sidelying Exercises open book Sidelying Exercise Name opposite hand provides hip adduction. Reps/Minutes 8 x2 Comments for HEP Sitting Exercises lumbar flexion stretch Reps/Minutes 5 sec hold x10 Standing Exercises hip hinge Reps/Minutes 8x 2 Comments no UE support, cues on neutral spine sit to stand Reps/Minutes 5 x 3 Comments without UE push off, no discomfort noted. Manual Therapy Treatment Soft Tissue Mobilization paraspinals Body Location L/S, QL Mobilization Type Myofascial Release,Sustained Pressure,Trigger Point Release Intensity/Depth Moderate Body Position Prone Comments increased tonicity at R QL today PT-OP-R Modalities Start: 04/18/21 16:11 Freq: Status: Active Protocol: Document 04/28/21 11:17 (Rec: 04/28/21 12:01 [id number]) Hot Pack/Cold Pack Treatment Hot Pack Location L/S Patient Position Hooklying Treatment Duration (minutes) 12 Patient Tolerance Good PT-OP-T Assessment and Plan Start: 04/18/21 16:11 Freq: Status: Active Protocol: Document 04/28/21 11:17 (Rec: 04/28/21 12:01 [id number]) Physical Therapy Assessment Goals balance Impairment decreased balance Short Term Goal (STG) pt will show improved single leg stability and strength in order for her to walk in community with 1 hiking stick only STG Duration 4 weeks Supervisor Water Softener Service Goal (LTG) pt will show improved single leg stability and strength in order for her to walk in uneven ground without hiking stick, LTG Duration 8 weeks activity tolerance Impairment unable to stand / sit >10 mins d/t LBP Short Term Goal (STG) pt will be able to stand to sit > 20mins without increase in LBP STG Duration 4 weeks Supervisor Water Softener Service Goal (LTG) pt will be able to stand to sit > 30 mins without increase in LBP therefore she can watch TV/ read comfortably. LTG Duration 8 weeks Oswestry Impairment Pt scores 30 on Oswestry Short Term Goal (STG) pt will be able to improve her overall lumbar mobility and strength to score > 20 on Oswestry STG Duration 4 weeks Detention Goal (LTG) pt will be able to improve her overall lumbar mobility and strength to score > 15 on Oswestry LTG Duration 8 weeks LEFS Impairment pt scores 23 on LEFS Short Term Goal (STG) pt will show improved overall mobility and strength to score >40 on LEFS STG Duration 4 weeks Supervisor Water Softener Service Goal (LTG) pt will show improved overall mobility and strength to score >50 on LEFS which represent a better quality o flife Assessment Summary Assessment Pt came in with increaesd tonicity at R QL today possibly d/t pt practicing bridging at home. Discontinue it until next week. Otherwise, pt has been doing well with good understanding of her HEP. Physical Therapy Plan Frequency and Duration Frequency of Treatment 2x/Week Duration of Treatment 8 weeks Plan of Care Start Date 04/18/21 Plan of Care End Date 06/17/21 Therapeutic Interventions Therapeutic Interventions Aquatic Therapy,Balance Training,Gait Training,Home Exercise Program,Joint Mobilizations,Manual Therapy, Neuromuscular Re-education, Patient/Caregiver Education, Self-Care/Home Management,Soft Tissue Mobilization,Taping, Therapeutic Activities, Therapeutic Exercises Modalities Cold Pack/Ice Massage,Electric Stimulation,Hot Packs, Infrared Therapy,Traction- Mechanical,Ultrasound Next Visit Focus/Plan Next Note Type Treatment Note Next Visit Plan check tennis ball relief starts with gentle pelvic tilt knee to chest glute stretch LTR bridging
--- NOTE | 2021-05-02 14:28 | PT.OTN ---
Current Diagnoses Low back pain (05/02/21) Unspecified abnormalities of gait and mobility (05/02/21) Physical Therapy Treatment Note PT-OP-A Visit Information Start: 04/18/21 16:11 Freq: Status: Active Protocol: Document 05/02/21 13:00 HH (Rec: 05/02/21 14:28 [id number]) Out-Patient Physical Therapy Visit Information Visit Information Visit Type Treatment Note Visit Start Time 13:47 Visit Stop Time 14:40 Total Visit Minutes 53 Visit Number 03/30 Number of INVESTOR RELATIONS MANAGER Visits 0 PT-OP-B Current Condition Start: 04/18/21 16:11 Freq: Status: Active Protocol: Document 04/18/21 16:11 HH (Rec: 04/18/21 16:53 HH [email or web address]) Current Condition History of Current Condition Onset Date Since 10/25/20 Current Complaints LBP, decreased balance and multiple falls. History of Current Condition Tonia Freed) is a 75yo female here for her LBP started after her fall in October last year. She apparently fell on her back resulting T12 compression fracture who had to wear a TLSO for 6 weeks. Pt stated her pain at lower lumbar region starts to begin with significant stiffness in the morning. She noticed staying in one position tends to make her stiff. Recovering from a bend over position tends to hurt as well. Her balance is also affected who needs to use UE to push off from chair to stand up; using handrail for stair climbing and use of hiking sticks to walk on uneven ground. She stated walking, moving around and use of heat pad relieve her pain but not long. She normally likes to walk 2 miles a day. Prior Treatments and Tests Procedure: XR lumbar spine 2- 3V 10/25/20 IMPRESSION: Mild T12 vertebral body compression fracture & Severe narrowing of the L4-L5 disc space R TKA 2018, R knee FRANCK 2019 Treatment Goals Patient/Caregiver Goals 1. to regain her balance and able to walk on uneven ground 2. to decrease her LBP 3. not to have a fall again Personal Factors Other Personal Factors That May Effect osteopenia Therapy/Recovery previous falls PT-OP-C Subjective Start: 04/18/21 16:11 Freq: Status: Active Protocol: Document 05/02/21 13:00 HH (Rec: 05/02/21 14:28 [id number]) OP-PT Subjective Patient Comments Patient Comments Deepa been practicing getting up from chair without using arms to push off. My back feels good. I can also roll in bed without any discomfort. My balance is getting better too. However, i have trouble standing >:10 mins Patient Reported Progress Improving PT-OP-D Balance Start: 04/18/21 16:11 Freq: Status: Active Protocol: Document 04/18/21 16:11 HH (Rec: 04/18/21 16:53 [email or web address]) Balance Tests Single Limb Standing Single Limb- Right 3,5,4 Single Limb- Left 5,7,8 PT-OP-F Manual Assessment Start: 04/18/21 16:11 Freq: Status: Active Protocol: Document 04/18/21 16:11 (Rec: 04/18/21 16:53 [email or web address]) Manual Assessments Soft Tissue Assessment Soft Tissue Mobility Assessment significant hypertoncity at bilateral lumbar paraspinals ( L3-L5) and L gluteal max and med PT-OP-H Neuro Start: 04/18/21 16:11 Freq: Status: Active Protocol: Document 04/18/21 16:11 HH (Rec: 04/18/21 16:53 [email or web address]) Sensation Evaluation Gross Sensation Gross Sensation WNL Deep Tendon Reflex & Clonus Assessment Deep Tendon Reflex Bilateral Achilles Deep Tendon Reflex 2+ Normal Bilateral Patellar Deep Tendon Reflex 2+ Normal PT-OP-K Range of Motion Start: 04/18/21 16:11 Freq: Status: Active Protocol: Document 04/18/21 16:11 (Rec: 04/18/21 16:53 [email or web address]) Lumbar Spine Range of Motion Lumbar Spine Active Degrees Comments toe touch test= able to reach ankle, lack of segmental flexion at lumbar region, stretching sesnsation noted. lateral flexion to R= 23 inches from floor lateral flexion to L= 23 inches from floor extension= shoulder at heels= pressure noted. pt has pain at L4L5 region in supine Hip Goniometric Range of Motion Hip Right Active Straight Leg Raise 90 Comments pain to descend her LE from SLR position Left Active Hip ROM WFL Yes Straight Leg Raise 88 Comments pain to descend her LE from SLR position PT-OP-M Strength Start: 04/18/21 16:11 Freq: Status: Active Protocol: Document 04/18/21 16:11 (Rec: 04/18/21 16:53 [email or web address]) Hip Strength Hip Manual Muscle Testing Right Flexion (L2) 4- Good- Extension (S1) 4- Good- Abduction 4- Good- Adduction 4- Good- Left Flexion (L2) 4- Good- Extension (S1) 4- Good- Abduction 4- Good- Adduction 4- Good- PT-OP-Q Treatments Start: 04/18/21 16:11 Freq: Status: Active Protocol: Document 05/02/21 13:00 (Rec: 05/02/21 14:28 [id number]) Therapeutic Exercises Supine Exercises bridging Reps/Minutes 10 x2 Comments less pain with PPT, improved with repetition LTR Side bilateral Equipment Used red therapy ball Reps/Minutes 8 x2 Comments cues on eccentric control pelvic tilt Side bilateral Reps/Minutes 10 x1 Comments no cues needed. Sidelying Exercises open book Sidelying Exercise Name opposite hand provides hip adduction. Reps/Minutes 8 x2 Comments for HEP Sitting Exercises lumbar flexion stretch Reps/Minutes 5 sec hold x10 Standing Exercises standing pelvic tilt Side bilateral Reps/Minutes 10 x2 Comments min cues for PPT Manual Therapy Treatment Soft Tissue Mobilization paraspinals Body Location L/S, QL Mobilization Type Myofascial Release,Sustained Pressure,Trigger Point Release Intensity/Depth Moderate Body Position Prone Comments reduced tonicity at R QL today PT-OP-R Modalities Start: 04/18/21 16:11 Freq: Status: Active Protocol: Document 05/02/21 13:00 (Rec: 05/02/21 14:28 [id number]) Hot Pack/Cold Pack Treatment Hot Pack Location L/S Patient Position Hooklying Treatment Duration (minutes) 12 Patient Tolerance Good PT-OP-T Assessment and Plan Start: 04/18/21 16:11 Freq: Status: Active Protocol: Document 05/02/21 13:00 (Rec: 05/02/21 14:28 [id number]) Physical Therapy Assessment Goals balance Impairment decreased balance Short Term Goal (STG) pt will show improved single leg stability and strength in order for her to walk in community with 1 hiking stick only STG Duration 4 weeks Fpc Goal (LTG) pt will show improved single leg stability and strength in order for her to walk in uneven ground without hiking stick, LTG Duration 8 weeks activity tolerance Impairment unable to stand / sit >10 mins d/t LBP Short Term Goal (STG) pt will be able to stand to sit > 20mins without increase in LBP STG Duration 4 weeks Fpc Goal (LTG) pt will be able to stand to sit > 30 mins without increase in LBP therefore she can watch TV/ read comfortably. LTG Duration 8 weeks Oswestry Impairment Pt scores 30 on Oswestry Short Term Goal (STG) pt will be able to improve her overall lumbar mobility and strength to score > 20 on Oswestry STG Duration 4 weeks Fpc Goal (LTG) pt will be able to improve her overall lumbar mobility and strength to score > 15 on Oswestry LTG Duration 8 weeks LEFS Impairment pt scores 23 on LEFS Short Term Goal (STG) pt will show improved overall mobility and strength to score >40 on LEFS STG Duration 4 weeks Shank Threader Goal (LTG) pt will show improved overall mobility and strength to score >50 on LEFS which represent a better quality o flife Assessment Summary Assessment Pt is doing well with good understanding of her HEP and lesss pain. She still c/o increase pain after standing. Therefore, provided pt bridging with PPT and standing pelvic tilt. Pt polly session well. Will progress her to WB position as polly. Physical Therapy Plan Frequency and Duration Frequency of Treatment 2x/Week Duration of Treatment 8 weeks Plan of Care Start Date 04/18/21 Plan of Care End Date 06/17/21 Therapeutic Interventions Therapeutic Interventions Aquatic Therapy,Balance Training,Gait Training,Home Exercise Program,Joint Mobilizations,Manual Therapy, Neuromuscular Re-education, Patient/Caregiver Education, Self-Care/Home Management,Soft Tissue Mobilization,Taping, Therapeutic Activities, Therapeutic Exercises Modalities Cold Pack/Ice Massage,Electric Stimulation,Hot Packs, Infrared Therapy,Traction- Mechanical,Ultrasound Next Visit Focus/Plan Next Note Type Treatment Note Next Visit Plan check tennis ball relief starts with gentle pelvic tilt knee to chest glute stretch LTR bridging
--- NOTE | 2021-05-09 13:50 | PT.OTN ---
Current Diagnoses Low back pain (05/09/21) Unspecified abnormalities of gait and mobility (05/09/21) Physical Therapy Treatment Note PT-OP-A Visit Information Start: 04/18/21 16:11 Freq: Status: Active Protocol: Document 05/09/21 12:52 HH (Rec: 05/09/21 13:48 [id number]) Out-Patient Physical Therapy Visit Information Visit Information Visit Type Treatment Note Visit Start Time 13:00 Visit Stop Time 13:55 Total Visit Minutes 55 Visit Number 04/30 Number of PERCUSSION INSTRUMENT TUNER Visits 0 PT-OP-B Current Condition Start: 04/18/21 16:11 Freq: Status: Active Protocol: Document 04/18/21 16:11 HH (Rec: 04/18/21 16:53 HH [email or web address]) Current Condition History of Current Condition Onset Date Since 10/25/20 Current Complaints LBP, decreased balance and multiple falls. History of Current Condition Tonia Freed) is a 75yo female here for her LBP started after her fall in October last year. She apparently fell on her back resulting T12 compression fracture who had to wear a TLSO for 6 weeks. Pt stated her pain at lower lumbar region starts to begin with significant stiffness in the morning. She noticed staying in one position tends to make her stiff. Recovering from a bend over position tends to hurt as well. Her balance is also affected who needs to use UE to push off from chair to stand up; using handrail for stair climbing and use of hiking sticks to walk on uneven ground. She stated walking, moving around and use of heat pad relieve her pain but not long. She normally likes to walk 2 miles a day. Prior Treatments and Tests Procedure: XR lumbar spine 2- 3V 10/25/20 IMPRESSION: Mild T12 vertebral body compression fracture & Severe narrowing of the L4-L5 disc space R TKA 2018, R knee FRANCK 2019 Treatment Goals Patient/Caregiver Goals 1. to regain her balance and able to walk on uneven ground 2. to decrease her LBP 3. not to have a fall again Personal Factors Other Personal Factors That May Effect osteopenia Therapy/Recovery previous falls PT-OP-C Subjective Start: 04/18/21 16:11 Freq: Status: Active Protocol: Document 05/09/21 12:52 HH (Rec: 05/09/21 13:48 HH [id number]) OP-PT Subjective Patient Comments Patient Comments .Im doing good and my back does feel stiff in the morning but once i use the tennis back and stretches then ill be good. Patient Reported Progress Improving PT-OP-D Balance Start: 04/18/21 16:11 Freq: Status: Active Protocol: Document 04/18/21 16:11 HH (Rec: 04/18/21 16:53 [email or web address]) Balance Tests Single Limb Standing Single Limb- Right 3,5,4 Single Limb- Left 5,7,8 PT-OP-F Manual Assessment Start: 04/18/21 16:11 Freq: Status: Active Protocol: Document 04/18/21 16:11 HH (Rec: 04/18/21 16:53 [email or web address]) Manual Assessments Soft Tissue Assessment Soft Tissue Mobility Assessment significant hypertoncity at bilateral lumbar paraspinals ( L3-L5) and L gluteal max and med PT-OP-H Neuro Start: 04/18/21 16:11 Freq: Status: Active Protocol: Document 04/18/21 16:11 HH (Rec: 04/18/21 16:53 [email or web address]) Sensation Evaluation Gross Sensation Gross Sensation WNL Deep Tendon Reflex & Clonus Assessment Deep Tendon Reflex Bilateral Achilles Deep Tendon Reflex 2+ Normal Bilateral Patellar Deep Tendon Reflex 2+ Normal PT-OP-K Range of Motion Start: 04/18/21 16:11 Freq: Status: Active Protocol: Document 04/18/21 16:11 HH (Rec: 04/18/21 16:53 [email or web address]) Lumbar Spine Range of Motion Lumbar Spine Active Degrees Comments toe touch test= able to reach ankle, lack of segmental flexion at lumbar region, stretching sesnsation noted. lateral flexion to R= 23 inches from floor lateral flexion to L= 23 inches from floor extension= shoulder at heels= pressure noted. pt has pain at L4L5 region in supine Hip Goniometric Range of Motion Hip Right Active Straight Leg Raise 90 Comments pain to descend her LE from SLR position Left Active Hip ROM WFL Yes Straight Leg Raise 88 Comments pain to descend her LE from SLR position PT-OP-M Strength Start: 04/18/21 16:11 Freq: Status: Active Protocol: Document 04/18/21 16:11 HH (Rec: 04/18/21 16:53 [email or web address]) Hip Strength Hip Manual Muscle Testing Right Flexion (L2) 4- Good- Extension (S1) 4- Good- Abduction 4- Good- Adduction 4- Good- Left Flexion (L2) 4- Good- Extension (S1) 4- Good- Abduction 4- Good- Adduction 4- Good- PT-OP-Q Treatments Start: 04/18/21 16:11 Freq: Status: Active Protocol: Document 05/09/21 12:52 HH (Rec: 05/09/21 13:48 [id number]) Therapeutic Exercises Supine Exercises ab curl Equipment Used red therapy ball Reps/Minutes 8 x2 Comments cues on flat back bridging Equipment Used ball in between knees, Reps/Minutes 10 x2 Comments no pain with ball in knees, LTR Side bilateral Equipment Used red therapy ball Reps/Minutes 8 x2 Comments cues on eccentric control pelvic tilt Side bilateral Reps/Minutes 10 x1 Comments no cues needed. Sitting Exercises lumbar flexion stretch Reps/Minutes 5 sec hold x10 Standing Exercises standing pelvic tilt Side bilateral Reps/Minutes 10 x2 Comments min cues for PPT sit to stand Reps/Minutes 5 x 3 Comments without UE push off, cues to prevernt trunk rock motion. Therapeutic Activity Therapeutic Activity floor transfer Reps/Minutes 4 Comments use of chair for UE support. supine >prone > quadruped> half kneel> stand pt has difficulty from half kneel to standing d/t weakness on LE and UE Manual Therapy Treatment Soft Tissue Mobilization paraspinals Body Location L/S, QL Mobilization Type Myofascial Release,Sustained Pressure,Trigger Point Release Intensity/Depth Moderate Body Position Prone Comments reduced tonicity at R QL today PT-OP-R Modalities Start: 04/18/21 16:11 Freq: Status: Active Protocol: Document 05/09/21 12:52 (Rec: 05/09/21 13:48 [id number]) Hot Pack/Cold Pack Treatment Hot Pack Location L/S Patient Position Hooklying Treatment Duration (minutes) 12 Patient Tolerance Good PT-OP-T Assessment and Plan Start: 04/18/21 16:11 Freq: Status: Active Protocol: Document 05/09/21 12:52 (Rec: 05/09/21 13:48 [id number]) Physical Therapy Assessment Goals balance Impairment decreased balance Short Term Goal (STG) pt will show improved single leg stability and strength in order for her to walk in community with 1 hiking stick only STG Duration 4 weeks Distribution Specialist Goal (LTG) pt will show improved single leg stability and strength in order for her to walk in uneven ground without hiking stick, LTG Duration 8 weeks activity tolerance Impairment unable to stand / sit >10 mins d/t LBP Short Term Goal (STG) pt will be able to stand to sit > 20mins without increase in LBP STG Duration 4 weeks Distribution Specialist Goal (LTG) pt will be able to stand to sit > 30 mins without increase in LBP therefore she can watch TV/ read comfortably. LTG Duration 8 weeks Oswestry Impairment Pt scores 30 on Oswestry Short Term Goal (STG) pt will be able to improve her overall lumbar mobility and strength to score > 20 on Oswestry STG Duration 4 weeks Distribution Specialist Goal (LTG) pt will be able to improve her overall lumbar mobility and strength to score > 15 on Oswestry LTG Duration 8 weeks LEFS Impairment pt scores 23 on LEFS Short Term Goal (STG) pt will show improved overall mobility and strength to score >40 on LEFS STG Duration 4 weeks Distribution Specialist Goal (LTG) pt will show improved overall mobility and strength to score >50 on LEFS which represent a better quality o flife Assessment Summary Assessment pt cont to progress well with less pain and more functional mobility without compensation (STS, transfer) . Pt wants to focus more on floor transfer d /t limited mobility and strength. Educated her to use chair support and will focus on that in May (1x/ wk x 4 weeks) Physical Therapy Plan Frequency and Duration Frequency of Treatment 2x/Week Duration of Treatment 8 weeks Plan of Care Start Date 04/18/21 Plan of Care End Date 06/17/21 Therapeutic Interventions Therapeutic Interventions Aquatic Therapy,Balance Training,Gait Training,Home Exercise Program,Joint Mobilizations,Manual Therapy, Neuromuscular Re-education, Patient/Caregiver Education, Self-Care/Home Management,Soft Tissue Mobilization,Taping, Therapeutic Activities, Therapeutic Exercises Modalities Cold Pack/Ice Massage,Electric Stimulation,Hot Packs, Infrared Therapy,Traction- Mechanical,Ultrasound Next Visit Focus/Plan Next Note Type Treatment Note Next Visit Plan check tennis ball relief starts with gentle pelvic tilt knee to chest glute stretch LTR bridging
--- NOTE | 2021-05-12 16:21 | PT.OTN ---
Current Diagnoses Low back pain (05/12/21) Unspecified abnormalities of gait and mobility (05/12/21) Physical Therapy Treatment Note PT-OP-A Visit Information Start: 04/18/21 16:11 Freq: Status: Active Protocol: Document 05/12/21 15:17 HH (Rec: 05/12/21 16:20 [id number]) Out-Patient Physical Therapy Visit Information Visit Information Visit Type Treatment Note Visit Start Time 14:31 Visit Stop Time 15:24 Total Visit Minutes 53 Visit Number 05/30 Number of YARD SPECIALIST Visits 0 PT-OP-B Current Condition Start: 04/18/21 16:11 Freq: Status: Active Protocol: Document 04/18/21 16:11 HH (Rec: 04/18/21 16:53 [email or web address]) Current Condition History of Current Condition Onset Date Since 10/25/20 Current Complaints LBP, decreased balance and multiple falls. History of Current Condition Tonia Freed) is a 75yo female here for her LBP started after her fall in October last year. She apparently fell on her back resulting T12 compression fracture who had to wear a TLSO for 6 weeks. Pt stated her pain at lower lumbar region starts to begin with significant stiffness in the morning. She noticed staying in one position tends to make her stiff. Recovering from a bend over position tends to hurt as well. Her balance is also affected who needs to use UE to push off from chair to stand up; using handrail for stair climbing and use of hiking sticks to walk on uneven ground. She stated walking, moving around and use of heat pad relieve her pain but not long. She normally likes to walk 2 miles a day. Prior Treatments and Tests Procedure: XR lumbar spine 2- 3V 10/25/20 IMPRESSION: Mild T12 vertebral body compression fracture & Severe narrowing of the L4-L5 disc space R TKA 2018, R knee FRANCK 2019 Treatment Goals Patient/Caregiver Goals 1. to regain her balance and able to walk on uneven ground 2. to decrease her LBP 3. not to have a fall again Personal Factors Other Personal Factors That May Effect osteopenia Therapy/Recovery previous falls PT-OP-C Subjective Start: 04/18/21 16:11 Freq: Status: Active Protocol: Document 05/12/21 15:17 HH (Rec: 05/12/21 16:20 HH [id number]) OP-PT Subjective Patient Comments Patient Comments I had a loud pop at my back this morning but it doesnt bother me. I ve been very good so far. Patient Reported Progress Improving PT-OP-D Balance Start: 04/18/21 16:11 Freq: Status: Active Protocol: Document 04/18/21 16:11 HH (Rec: 04/18/21 16:53 [email or web address]) Balance Tests Single Limb Standing Single Limb- Right 3,5,4 Single Limb- Left 5,7,8 PT-OP-F Manual Assessment Start: 04/18/21 16:11 Freq: Status: Active Protocol: Document 04/18/21 16:11 HH (Rec: 04/18/21 16:53 [email or web address]) Manual Assessments Soft Tissue Assessment Soft Tissue Mobility Assessment significant hypertoncity at bilateral lumbar paraspinals ( L3-L5) and L gluteal max and med PT-OP-H Neuro Start: 04/18/21 16:11 Freq: Status: Active Protocol: Document 04/18/21 16:11 HH (Rec: 04/18/21 16:53 [email or web address]) Sensation Evaluation Gross Sensation Gross Sensation WNL Deep Tendon Reflex & Clonus Assessment Deep Tendon Reflex Bilateral Achilles Deep Tendon Reflex 2+ Normal Bilateral Patellar Deep Tendon Reflex 2+ Normal PT-OP-K Range of Motion Start: 04/18/21 16:11 Freq: Status: Active Protocol: Document 04/18/21 16:11 HH (Rec: 04/18/21 16:53 [email or web address]) Lumbar Spine Range of Motion Lumbar Spine Active Degrees Comments toe touch test= able to reach ankle, lack of segmental flexion at lumbar region, stretching sesnsation noted. lateral flexion to R= 23 inches from floor lateral flexion to L= 23 inches from floor extension= shoulder at heels= pressure noted. pt has pain at L4L5 region in supine Hip Goniometric Range of Motion Hip Right Active Straight Leg Raise 90 Comments pain to descend her LE from SLR position Left Active Hip ROM WFL Yes Straight Leg Raise 88 Comments pain to descend her LE from SLR position PT-OP-M Strength Start: 04/18/21 16:11 Freq: Status: Active Protocol: Document 04/18/21 16:11 HH (Rec: 04/18/21 16:53 [email or web address]) Hip Strength Hip Manual Muscle Testing Right Flexion (L2) 4- Good- Extension (S1) 4- Good- Abduction 4- Good- Adduction 4- Good- Left Flexion (L2) 4- Good- Extension (S1) 4- Good- Abduction 4- Good- Adduction 4- Good- PT-OP-Q Treatments Start: 04/18/21 16:11 Freq: Status: Active Protocol: Document 05/12/21 15:17 (Rec: 05/12/21 16:20 [id number]) Cardio Equipment Recumbent Bicycle Duration (Minutes) 8 Resistance 5 Gym Equipment Shuttle Recovery SL squat Resistance #37 Shuttle Recovery Platform Stable Therapeutic Exercises Sitting Exercises lumbar flexion stretch Reps/Minutes 5 sec hold x10 Standing Exercises step up Equipment Used 6inch step Reps/Minutes 8 times x2 Comments min UE support balance Standing Exercise Name staggered stance Side bilateral Reps/Minutes 8 mins Comments 2 green foam sit to stand Reps/Minutes 5 x 3 Comments without UE push off, cues to prevernt trunk rock motion. Manual Therapy Treatment Soft Tissue Mobilization paraspinals Body Location L/S, QL Mobilization Type Myofascial Release,Sustained Pressure,Trigger Point Release Intensity/Depth Moderate Body Position Prone Comments reduced tonicity at R QL today PT-OP-R Modalities Start: 04/18/21 16:11 Freq: Status: Active Protocol: Document 05/12/21 15:17 (Rec: 05/12/21 16:20 [id number]) Hot Pack/Cold Pack Treatment Hot Pack Location L/S Patient Position Hooklying Treatment Duration (minutes) 12 Patient Tolerance Good PT-OP-T Assessment and Plan Start: 04/18/21 16:11 Freq: Status: Active Protocol: Document 05/12/21 15:17 (Rec: 05/12/21 16:20 [id number]) Physical Therapy Assessment Goals floor recovery Impairment pt has difficulty recovering from half kneel to standing positiont Short Term Goal (STG) pt will show improve UE and LE strength to be able to recover from half kneeling to standing position with the use of chair for support 3 times in a row STG Duration 2 weeks Prison Goal (LTG) pt will show improve UE and LE strength to be able to recover from half kneeling to standing position with the use of chair for support 5 times in a row LTG Duration 4 weeks balance Impairment decreased balance Short Term Goal (STG) pt will show improved single leg stability and strength in order for her to walk in community with 1 hiking stick only STG Duration 4 weeks Prison Goal (LTG) pt will show improved single leg stability and strength in order for her to walk in uneven ground without hiking stick, LTG Duration 8 weeks activity tolerance Impairment unable to stand / sit >10 mins d/t LBP Short Term Goal (STG) pt will be able to stand to sit > 20mins without increase in LBP STG Duration 4 weeks Manager Simulation Goal (LTG) pt will be able to stand to sit > 30 mins without increase in LBP therefore she can watch TV/ read comfortably. LTG Duration 8 weeks Oswestry Impairment Pt scores 30 on Oswestry Short Term Goal (STG) pt will be able to improve her overall lumbar mobility and strength to score > 20 on Oswestry STG Duration 4 weeks Manager Simulation Goal (LTG) pt will be able to improve her overall lumbar mobility and strength to score > 15 on Oswestry LTG Duration 8 weeks LEFS Impairment pt scores 23 on LEFS Short Term Goal (STG) pt will show improved overall mobility and strength to score >40 on LEFS STG Duration 4 weeks Manager Simulation Goal (LTG) pt will show improved overall mobility and strength to score >50 on LEFS which represent a better quality o flife Assessment Summary Assessment Pt polly session very well with focus on Physical Therapy Plan Frequency and Duration Frequency of Treatment 2x/Week Duration of Treatment 8 weeks Plan of Care Start Date 04/18/21 Plan of Care End Date 06/17/21 Therapeutic Interventions Therapeutic Interventions Aquatic Therapy,Balance Training,Gait Training,Home Exercise Program,Joint Mobilizations,Manual Therapy, Neuromuscular Re-education, Patient/Caregiver Education, Self-Care/Home Management,Soft Tissue Mobilization,Taping, Therapeutic Activities, Therapeutic Exercises Modalities Cold Pack/Ice Massage,Electric Stimulation,Hot Packs, Infrared Therapy,Traction- Mechanical,Ultrasound Next Visit Focus/Plan Next Note Type Treatment Note Next Visit Plan check tennis ball relief starts with gentle pelvic tilt knee to chest glute stretch LTR bridging
--- NOTE | 2021-09-06 13:28 | PT.OPDS ---
Current Diagnoses Low back pain (05/12/21) Unspecified abnormalities of gait and mobility (05/12/21) Visit Care Team Role Provider Type Luis Henderson MD Attending Provider Physician Primary Care Provider Referring Provider Specialty: Internal Medicine Address: [address] [place] [address], [id number] Email: [email or web address] Visit Number Visit Number 05/30 Discharge Summary PT-OP-T Assessment and Plan Start: 04/18/21 16:11 Freq: Status: Active Protocol: Document 09/06/21 13:27 (Rec: 09/06/21 13:28 [email or web address]) Physical Therapy Plan Discharge Physical Therapy Discharge Reasons No Longer Attending PT Discharge Comments pt has not returned since may because of family emergency. Per EMR, she has shown good progress since she started PT .DC from PT today
== END 2021-09-22 12:50 ==
LOC: PHYS 14:30
PROVIDERS: PCP Internal Medicine; Referring Provider Internal Medicine; Visit Provider Internal Medicine
DX: R26.9 Unspecified abnormalities of gait and mobility (principal); M54.5 Low back pain
CPT/HCPCS: 97110; 97140; 97161; 97530

== ENCOUNTER → 2022-04-12 12:03 | Outpatient (CLI) | payer MEDICARE, SELFPAY ==
[2019-10-03 16:59] VITALS: BMI 26.6
[2022-04-12 13:46] LABS: Hematocrit 43.8 % (36-46); Hemoglobin 15.5 g/dL (12.0-16.0); Mean Corpuscular HGB Conc 35.3 % (30-36); Mean Corpuscular Volume 90.7 fL (80-100); Platelet Count 359 X10^3/uL (150-400); Red Blood Cell Count 4.83 X10^6/uL (4.0-5.2); Red Cell Distribution Width 12.7 % (11.6-14.8); White Blood Cell Count 7.8 X10^3/uL (4.5-11.0)
[2022-04-12 14:18] LABS: Alanine Aminotransferase 28 IU/L (<35); Albumin 4.7 g/dL (3.5-5.0); Alkaline Phosphatase 77 U/L (38-126); Aspartate Aminotransferase 33 IU/L (14-36); BUN Creatinine Ratio 12.3 (6-22); Bilirubin Total 1.2 mg/dL (0.2-1.3); Blood Urea Nitrogen 8 mg/dL (7-17); Calcium 9.5 mg/dL (8.4-10.2); Carbon Dioxide 31 mmol/L (22-32); Chloride 90 mmol/L (98-107); Cholesterol 173 mg/dL (140-199); Estimated Glomerular Filt Rate > 60 mL/min (>60); Globulin 2.4 g/dL (1.7-4.1); Glucose 106 mg/dL (80-110); HDL Cholesterol 51 mg/dL (40-60); HEMOLYSIS < 15 (0-50); LDL Cholesterol Calculated 91 mg/dL (<100); Potassium 3.7 mmol/L (3.4-5.1); Sodium 130 mmol/L (137-145); Total Protein 7.1 g/dL (6.3-8.2); Triglycerides 153 mg/dL (35-150)
[2022-04-12 14:54] LABS: TSH w/ Reflex to FT4 2.16 uIU/mL (0.47-4.68)
== END ==
PROVIDERS: PCP Internal Medicine; Referring Provider Internal Medicine; Visit Provider Internal Medicine
DX: E78.2 Mixed hyperlipidemia (principal); I10 Essential (primary) hypertension
CPT/HCPCS: 36415; 80053; 80061; 84443; 85027

== ENCOUNTER → 2022-11-07 13:36 | Outpatient (CLI) | payer MEDICARE, SELFPAY ==
[2019-10-03 16:59] VITALS: BMI 26.6
[2022-11-07 14:32] LABS: Influenza A - CEPHEID Flu A POSITIVE (NEGATIVE); Influenza B - CEPHEID Flu B NEGATIVE (NEGATIVE); Respiratory Syncytial Virus Negative (Negative)
[2022-11-07 14:53] LABS: COVID-19 CEPHEID 4-PLEX PCR Negative (Negative)
== END ==
PROVIDERS: PCP Internal Medicine; Visit Provider Registered Nurse
DX: R05.1 Acute cough (principal)
CPT/HCPCS: 0241U

== ENCOUNTER → 2023-04-19 07:33 | Outpatient (CLI) | payer MEDICARE, SELFPAY ==
[2019-10-03 16:59] VITALS: BMI 26.6
[2023-04-19 08:51] LABS: Aspartate Aminotransferase 27 IU/L (14-36); BUN Creatinine Ratio 13.6 (6-22); Blood Urea Nitrogen 8 mg/dL (7-17); Carbon Dioxide 29 mmol/L (22-32); Chloride 91 mmol/L (98-107); Cholesterol 148 mg/dL (140-199); Estimated Glomerular Filt Rate > 60 mL/min (>60); Glucose 103 mg/dL (80-110); HDL Cholesterol 45 mg/dL (40-60); HEMOLYSIS < 15 (0-50); LDL Cholesterol Calculated 77 mg/dL (<100); Potassium 3.5 mmol/L (3.4-5.1); Sodium 128 mmol/L (137-145); Triglycerides 128 mg/dL (35-150)
== END ==
PROVIDERS: PCP Internal Medicine; Referring Provider Internal Medicine; Visit Provider Internal Medicine
DX: I10 Essential (primary) hypertension (principal); E78.2 Mixed hyperlipidemia
CPT/HCPCS: 36415; 80048; 80061; 84450

== ENCOUNTER → 2023-04-25 14:06 | Outpatient (CLI) | payer MEDICARE, SELFPAY ==
[2019-10-03 16:59] VITALS: BMI 26.6
--- NOTE | 2023-04-25 | DI.MG.S_ITS ---
BILATERAL DIGITAL SCREENING MAMMOGRAM 3D/2D WITH CAD: 04/25/2023 CLINICAL: Routine screening. Comparison is made to exams dated: 05/05/2020 mammogram, 04/29/2019 mammogram, 03/26/2018 ultrasound, and 03/26/2018 mammogram - [facility]. Both breasts are heterogeneously dense, which may obscure small masses (category c / 51-75% glandular tissue). Current study was also evaluated with a Computer Aided Detection (CAD) system. There are benign calcifications in both breasts. No significant masses, calcifications, or other findings are seen in either breast. There has been no significant interval change. IMPRESSION: BENIGN There is no mammographic evidence of malignancy. A 1 year screening mammogram is recommended. Based on the Tyrer Cuzick model (a risk assessment model) the patient's lifetime risk is 3.7% and her 10 year risk is 0.0%. According to the ACR, ACS, and NCCN guidelines, an annual breast MRI exam along with mammogram is recommended if the patient's lifetime risk is 20% or greater. This exam was interpreted at Station ID: [id number]. NOTE: For mammograms, a report in lay terms will be sent to the patient. Approximately 15% of breast malignancies will not be visualized mammographically. In the management of a palpable breast mass, a negative mammogram must not discourage biopsy of a clinically suspicious lesion. Electronically Signed By: Jason white/[email or web address]:04/25/2023 16:48:54 letter sent: Normal Exam ACR BI-RADS Category 2: Benign Finding(s) 3342F
--- NOTE | 2023-04-25 14:39 | DI.DEXA.S_ITS ---
Bone Density Report Name: SANTA CHENEY Age: 77 Sex: Female Ethnicity: White Date of : 1945 Indication: postmenopausal; screening for osteoporosis; prior fracture; Referring Provider: ROYCE THAKUR Study: Bone densitometry was performed. Exam Date: April 25, 2023 Accession number: [id number] Bone Density: Region BMD T-score Z-score Classification AP Spine(L1-L4) 1.131 0.8 3.3 Normal Femoral Neck (Left) 0.665 -1.7 0.5 Osteopenia Total Hip (Left) 0.845 -0.8 1.1 Normal Femoral Neck (Right) 0.721 -1.2 1.0 Osteopenia Total Hip (Right) 0.876 -0.5 1.4 Normal Total Hip Mean 0.861 -0.7 1.3 Normal World Health Organization criteria for BMD impression classify patients as: Normal (T-score at or above -1.0), Osteopenia (T-score between -1.0 and -2.5), or Osteoporosis (T-score at or below -2.5). 10-year Fracture Risk: FRAX not reported because: Prior hip or vertebral fracture Previous Exams: -- Region Exam Age BMD T-score BMD Change BMD Change Date g/cm2 vs Baseline vs Previous -- AP Spine (L1-L4) 04/25/2023 77 1.131 0.8 -0.089 (-7.3%)# -0.089 (-7.3%)# 06/11/2020 74 1.220 1.6 Total Hip(Left) 04/25/2023 77 0.845 -0.8 -0.028 (-3.2%)# -0.028 (-3.2%)# 06/11/2020 74 0.873 -0.6 Total Hip(Right) 04/25/2023 77 0.876 -0.5 0.053 (6.4%)# 0.053 (6.4%)# 06/11/2020 74 0.823 -1.0 -- *Denotes significance at 95% confidence level, LSC for AP Spine = 0.022 g/cm2, LSC for Total Hip = 0.027 g/cm2 # Denotes dissimilar scan types or analysis methods Impression: The patient has low bone mass, based on the Left Femoral Neck T-score. The patient has risk factors, including: previous fracture. No significant bone loss was observed. Discussion: INCREASED RISK OF FRACTURE DUE TO HISTORY OF FRACTURE. The patient's previous fracture puts the patient at high risk of a future fracture. In untreated patients, the risk of osteoporotic fracture increases approximately two-fold for each 1.0 SD decrease in T-score. Low bone density is not the only risk factor for fracture; also consider factors such as patient's age, frailty or poor health, risk of falling, risk of injury, previous osteoporotic fracture, family history of osteoporosis, cigarette smoking, low body weight, etc. Not everyone with a low trauma fracture has osteoporosis; osteomalacia and other metabolic bone disorders should also be considered. Patients who have osteoporosis should be evaluated for specific diseases and conditions (secondary causes) that may cause or contribute to bone loss and fracture risk. National Osteoporosis Foundation (NOF) recommends pharmacologic intervention for patients with a prior hip or vertebral fracture regardless of BMD T-score. The patient should follow a healthful lifestyle (good nutrition with adequate calcium and vitamin D, and appropriate weight-bearing exercise). Follow-Up: Consider a repeat BMD and Vertebral Fracture Assessment (VFA) exam in 2 years or sooner if medically necessary, to reassess this patient's status. Reported by: JUSTINE DUBON M.D. on 04/25/2023 2:29:00 PM.
== END ==
PROVIDERS: PCP Internal Medicine; Referring Provider Internal Medicine; Visit Provider Internal Medicine
DX: Z13.820 Encounter for screening for osteoporosis (principal); Z12.31 Encounter for screening mammogram for malignant neoplasm of breast; M85.852 Other specified disorders of bone density and structure, left thigh; Z78.0 Asymptomatic menopausal state
CPT/HCPCS: 77063; 77067; 77080

== ENCOUNTER 2023-06-12 07:19 | Day surgery (SDC) | payer MEDICARE, SELFPAY ==
[2019-10-03 16:59] VITALS: BMI 26.6
[2023-06-12] VITALS (7 sets, daily range): BP systolic 70–123; BP diastolic 44–75; PULSE 48–82; RESP 15–20; TEMP 36.4–36.8; O2SAT 92–123; BMI 26.6
--- NOTE | 2023-06-12 | PATH_ITS ---
[facility] Accession Number: [id number] No. of containers..01 Tissue . 01 Material submitted: . gastrointestinal site - GASTRIC BIOPSY . 01 Diagnosis: Stomach, Biopsy: Gastric antral mucosa with no diagnostic abnormality. No evidence of Helicobacter organisms on H/E stain. Negative for intestinal metaplasia. Negative for dysplasia or malignancy. MRV 06/19/2023 191 Local . 01 Electronically signed: . Mitesh Miller MD, PhD, Pathologist NPI- [id number] . 01 Gross description: . GASTRIC BIOPSY: Received in formalin is 1 fragment(s) of schmitz, soft tissue measuring 0.3 x 0.2 x 0.2 cm submitted entirely in 1 cassette(s) /AVIS 06/15/20232000 Local . 01 Pathologist provided ICD-10: R10.13 . 01 CPT . 489733 Specimen Comment: A courtesy copy of this report has been sent to [phone] Performed at: 01 [facility] [address] [place] [address], [place], [place] [id number] MD Luisito Blakely MD Phone: [phone]
[2023-06-12] MEDS: LACTATED RINGERS 1,000 ML 200 ML IV (07:47)
--- NOTE | 2023-06-12 07:48 | PM.PREOP ---
Pre-operative Note Interval Note History & Physical reviewed/Exam performed by Physician: Yes Changes to H&P: No
--- NOTE | 2023-06-12 07:49 | P.OP.EGD&C_ITS ---
Operative Date/Time/Diagnoses Date of procedure: 06/12/23 Time of procedure: 07:49 Pre-op diagnosis: Altered bowel function, GI bleed Post-op diagnosis: other (gastritis) Procedure & Clinicians Study performed: Esophagoduodenoscopy and colonoscopy Same procedure as scheduled: Yes Indications: Altered bowel function, GI bleed Surgeon: Dave Franks Procedure Notes Procedure in detail: The history and physical was performed/updated and the patient is ASA class is 2 . The procedure was discussed in detail with the patient. Potential risks complications including infection, bleeding, missed diagnosis, perforation, need for surgery, and were explained. Their questions were answered and informed consent was obtained. Patient placed in left lateral decubitus position. Time out was performed. Procedural sedation was administered by Anesthesia. A bite block was placed. the scope was inserted into the mouth and advanced through the esophagus and into the stomach. Stomach was notable for mild gastritis there were flecks of c lot. Biopsy of the stomach was performed with forceps. No distinct ulcer.. The pylorus was intubated and the duodenum was normal to the 2nd portion The scope was withdrawn into the esophagus the Z line was seen at 35 cm from the incisions. There was no Alfaro's esophagitis, esophageal masses or strictures. Stomach was desufflated and scope removed. Examination began with a thorough inspection of the perianal area there was no evidence of fissures, fistulae, external hemorrhoids or cutaneous malignancy. The colonoscopy scope was then placed into the anal canal and was advanced to the cecum, which was identified by the ileocecal valve, the appendiceal orifice and the confluence of the taenia. The scope was then slowly withdrawn examining colon thoroughly in all directions, irrigating it of any residual stool. Colon was normal without masses or polyps. The patient tolerated the procedure well. They will be discharged once criteria are met. The prep was of good/excellent quality. The withdrawl time was 7 minutes. Specimen(s): other (Gastric) Impression: Gastritis Post-procedure Recommendations: Prescription for (Pepcid) Plan for aftercare: No further colonoscopy necessary unless symptomatic. Start Pepcid for gastritis. Will notify with biopsy results. Disposition: same day surgery
== END 2023-06-12 09:25 | disposition home or self-care (01) ==
PROVIDERS: PCP Internal Medicine; Referring Provider Surgery; Visit Provider Surgery
PROC: 0DJD8ZZ Inspection of Lower Intestinal Tract, Via Natural or Artificial Opening Endoscopic (ICD-10-PCS; CPT 45378; principal; 2023-06-12 08:30)
PROC: 0DJ08ZZ Inspection of Upper Intestinal Tract, Via Natural or Artificial Opening Endoscopic (ICD-10-PCS; CPT 43235; 2023-06-12 08:30)
DX: K62.5 Hemorrhage of anus and rectum (principal); R19.4 Change in bowel habit; Z80.0 Family history of malignant neoplasm of digestive organs; Z86.010 Personal history of colon polyps; K29.70 Gastritis, unspecified, without bleeding
CPT/HCPCS: 45378; 43239

== ENCOUNTER → 2024-04-08 12:43 | Outpatient (CLI) | payer MEDICARE, SELFPAY ==
[2019-10-03 16:59] VITALS: BMI 26.6
[2024-04-08 14:55] LABS: Influenza A - CEPHEID Flu A NEGATIVE (NEGATIVE); Influenza B - CEPHEID Flu B NEGATIVE (NEGATIVE); Respiratory Syncytial Virus Negative (Negative)
[2024-04-08 14:57] LABS: COVID-19 CEPHEID 4-PLEX PCR Negative (Negative)
== END ==
PROVIDERS: PCP Internal Medicine; Visit Provider Physician Assistant Surgical
DX: R05.1 Acute cough (principal); J02.9 Acute pharyngitis, unspecified
CPT/HCPCS: 0241U; 87070

== ENCOUNTER → 2024-04-23 09:43 | Outpatient (CLI) | payer MEDICARE, SELFPAY ==
[2019-10-03 16:59] VITALS: BMI 26.6
[2024-04-23 11:42] LABS: Aspartate Aminotransferase 28 IU/L (14-36); BUN Creatinine Ratio 16.4 (6-22); Blood Urea Nitrogen 11 mg/dL (7-17); Calcium 9.5 mg/dL (8.4-10.2); Carbon Dioxide 29 mmol/L (22-32); Chloride 96 mmol/L (98-107); Cholesterol 154 mg/dL (140-199); Estimated Glomerular Filt Rate > 60 mL/min (>60); Glucose 113 mg/dL (80-110); HDL Cholesterol 47 mg/dL (40-60); HEMOLYSIS < 15 (0-50); LDL Cholesterol Calculated 82 mg/dL (<100); Potassium 4.7 mmol/L (3.4-5.1); Sodium 130 mmol/L (137-145); Triglycerides 123 mg/dL (35-150)
== END ==
PROVIDERS: PCP Internal Medicine; Referring Provider Internal Medicine; Visit Provider Internal Medicine
DX: E78.2 Mixed hyperlipidemia (principal); I10 Essential (primary) hypertension
CPT/HCPCS: 36415; 80048; 80061; 84450

== ENCOUNTER → 2024-07-02 11:37 | Outpatient (CLI) | payer MEDICARE, SELFPAY ==
[2019-10-03 16:59] VITALS: BMI 26.6
--- NOTE | 2024-07-02 11:38 | DI.MG.S_ITS ---
BILATERAL DIGITAL SCREENING MAMMOGRAM 3D/2D WITH CAD: 07/02/2024 CLINICAL: Routine screening. Comparison is made to exams dated: 04/25/2023 mammogram - [facility], 05/05/2020 mammogram, and 04/29/2019 mammogram - [facility]. Both breasts are heterogeneously dense, which may obscure small masses (category c / 51-75% glandular tissue). Current study was also evaluated with a Computer Aided Detection (CAD) system. No significant masses, calcifications, or other findings are seen in either breast. There has been no significant interval change. IMPRESSION: NEGATIVE There is no mammographic evidence of malignancy. A 1 year screening mammogram is recommended. Based on the Tyrer Cuzick model (a risk assessment model) the patient's lifetime risk is 3.3% and her 10 year risk is 0.0%. According to the ACR, ACS, and NCCN guidelines, an annual breast MRI exam along with mammogram is recommended if the patient's lifetime risk is 20% or greater. This exam was interpreted at Station ID: [id number]. NOTE: For mammograms, a report in lay terms will be sent to the patient. Approximately 15% of breast malignancies will not be visualized mammographically. In the management of a palpable breast mass, a negative mammogram must not discourage biopsy of a clinically suspicious lesion. Electronically Signed By: Eve Bull M.D., Ph.D. fabrice/oswaldo:07/03/2024 10:25:44 letter sent: Normal Exam ACR BI-RADS Category 1: Negative 3341F
== END ==
PROVIDERS: PCP Internal Medicine; Referring Provider Internal Medicine; Visit Provider Internal Medicine
DX: Z12.31 Encounter for screening mammogram for malignant neoplasm of breast (principal); R92.333 Mammographic heterogeneous density, bilateral breasts
CPT/HCPCS: 77063; 77067

== ENCOUNTER 2025-02-11 10:52 | Emergency (ER) | payer MEDICARE, SELFPAY ==
[2019-10-03 16:59] VITALS: BMI 26.6
[2025-02-11 10:58] VITALS: BP 186/78; PULSE 60; RESP 18; TEMP 37; O2SAT 98; BMI 26.6
--- NOTE | 2025-02-11 11:44 | ED.EYEPROB ---
HPI - Eye Problem General Chief complaint: Eye Problems Stated complaint: Put nail glue in right eye instead of eye meds Time Seen by Provider: 02/11/25 11:36 Source: patient Mode of arrival: Ambulatory History of Present Illness HPI Narrative: Patient 79-year-old female presenting today with glue in her right eye. She reports that she went for her glaucoma drops but instead grabbed nail glue called kiss having severe pain. Wear glasses but no contacts. He is followed by [facility]. Reports that it feels like gravel in her right eye. Difficulty opening her eye Related Data Home Medications Medication Instructions Recorded Confirmed latanoprost 0.005 % eye drops 1 drp EYE-BOTH BEDTIME 10/01/19 04/23/24 dorzolamide 22.3 mg-timolol 6.8 1 drp EYE-BOTH BID 04/23/24 04/23/24 mg/mL eye drops Previous Rx's Medication Instructions Recorded aspirin 81 mg tablet,delayed 81 mg PO BID #60 tabs 10/04/19 release benzonatate 200 mg capsule 200 mg PO BID PRN cough #30 caps 04/08/24 ipratropium bromide 21 mcg (0.03 2 spray intranasal BID PRN 04/08/24 %) nasal spray Postnasal drip/nasal congestion #30 mL hydrochlorothiazide 25 mg tablet 12.5 mg (1/2 x 25 mg) PO DAILY #45 04/23/24 tabs lisinopril 10 mg tablet 10 mg PO DAILY #90 tabs 04/23/24 potassium chloride 10 mEq 10 meq PO DAILY #90 caps 04/23/24 capsule,extended release simvastatin 40 mg tablet 40 mg PO BEDTIME #90 tabs 04/23/24 valacyclovir 500 mg tablet 500 mg PO DAILY #90 tabs 04/23/24 erythromycin 5 mg/gram (0.5 %) eye 1 cm EYE-BOTH Q4HRWA #3.5 grams 02/11/25 ointment Allergies Allergy/AdvReac Type Severity Reaction Status Date / Time iodine [IODINE] Allergy Severe makes me Verified 04/23/24 08:59 stop breathing ibuprofen AdvReac Intermediate GI Bleed Verified 04/23/24 08:59 Patient History Medical History Chronic low back pain Depression Essential hypertension Family history of colon cancer Gait instability Glaucoma Herniated disc Herpesviral infection, unspecified History of colonic polyps Mixed hyperlipidemia Osteoarthritis Osteopenia Overweight Pneumonia Primary osteoarthritis involving multiple joints Skin cancer Surgical History History of colonoscopy Hx of bilateral cataract extraction Hx of oral surgery (~1996) Hx of tonsillectomy Status post vaginal hysterectomy (~1975) Social History marital status: unmarried,single household members: family and none lives independently: Yes occupational status: previously employed Smoking Status: Never smoker alcohol intake: current substance use type: does not use Smoking Status: Never smoker alcohol intake frequency: a few times a week Exam Initial Vital Signs Initial Vital Signs: Vital Signs Temperature 98.6 F 02/11/25 10:58 Pulse Rate 60 02/11/25 10:58 Respiratory Rate 18 02/11/25 10:58 Blood Pressure 186/78 H 02/11/25 10:58 Pulse Oximetry 98 02/11/25 10:58 Oxygen Delivery Method Room Air 02/11/25 10:58 GENERAL: Well-appearing, well-nourished and in no acute distress. EYE: Right eye periorbital erythema right eye has obvious glue on sclera, ice stained with fluorescein there is dye uptake in couple of areas both superiorly and inferiorly CARDIOVASCULAR: peripheral pulses in tact, cap refill <2 sec RESPIRATORY: No respiratory distress, speaks in full sentences without difficulty EXTREMITIES: Normal range of motion, no clubbing or edema. Neurovascularly intact NEUROLOGICAL: Cranial nerves II through XII grossly intact. Normal gait and speech. SKIN: Warm, dry, no petechiae, no rashes or lesions. Course Orders Ordered: Discontinued Medications Erythromycin (Erythromycin Ophth 1 Gm Oint) 1 applic EYE-BOTH NOW ONE Stop: 02/11/25 11:51 Last Admin: 02/11/25 11:56 Dose: 1 applic Documented By: CORBY Fluorescein Sodium (Fluorescein 1 Mg Strip) 1 mg EYE-BOTH NOW ONE Stop: 02/11/25 11:46 Last Admin: 02/11/25 11:57 Dose: 1 mg Documented By: CORBY Proparacaine HCl (Proparacaine 0.5% Ophth Yasmin) 1 drops EYE-BOTH NOW ONE Stop: 02/11/25 11:37 Last Admin: 02/11/25 11:57 Dose: 1 dose Documented By: CORBY Vital Signs Vital signs: Vital Signs - 8 hr 02/11/25 10:58 02/11/25 13:39 Temperature 98.6 F Pulse Rate 60 65 Respiratory Rate 18 16 Blood Pressure 186/78 H 204/89 H Pulse Oximetry 98 100 Oxygen Delivery Method Room Air Room Air MDM - Eye Problem Lab Data Labs: Point of Care Testing pH,Tear Film,POC Measurement pH 8 MDM Narrative Medical decision making narrative: 79-year-old female presents today with foreign body in her right eye. She does have glue in the right eye. I called and contacted poison control who recommended eye irrigation for at least 10 minutes and loss of erythromycin ointment to help get the glue off the eye. We will need urgent follow up with Ophthalmology Patient was irrigated with Diaz lens for about 10-15 minutes. Proparacaine drops were placed. She does have corneal abrasion and obvious glue in her eye. Proparacaine does seem to help quite a bit. She was also given erythromycin ointment. And it was placed multiple times in her eye. Offered Tylenol Motrin but declined 1325 criminal investigative agent from [facility]. Who can see her today or tomorrow. No further recommendations besides erythromycin ointment Patient concerned about how she was going to get to [facility] I have offered her a taxi cab I have also offered to call our local criminal investigative agent to see if they can see her however she politely declined both. Discharge Plan Departure Patient Disposition: Home Clinical Impression: Foreign body in cornea, right eye, initial encounter Instructions: Corneal Abrasion, DI for Foreign Body in the Eye Activity Restrictions/Additional Instructions: *You have been diagnosed with foreign body right eye *What to do: You will be sensitive to light, wear sunglasses. This will take some time for the glue to slough off You need to go directly to Ophthalmology in [facility] he was happy to see you today *Continue to take medications as directed Tylenol Motrin as needed for pain Erythromycin ointment every 3 hours while awake *Follow up with your primary care provider in 2-3 days or call [phone] Your criminal investigative agent today *Return to ER if you should have increasing pain difficulty seeing or any new, worsening or concerning symptoms Prescriptions: New erythromycin 5 mg/gram (0.5 %) ointment 1 cm EYE-BOTH Q4HRWA Qty: 3.5 0RF No Action benzonatate 200 mg capsule 200 mg PO BID PRN (Reason: cough) Qty: 30 0RF ipratropium bromide 21 mcg (0.03 %) spray,non-aerosol 2 spray intranasal BID PRN (Reason: Postnasal drip/nasal congestion) Qty: 30 0RF Rx Instructions: administer into each nostril dorzolamide-timolol 22.3-6.8 mg/mL drops 1 drp EYE-BOTH BID Patient Comments: [NO ORIGINAL SIG] lisinopril 10 mg tablet 10 mg PO DAILY Qty: 90 3RF simvastatin 40 mg tablet 40 mg PO BEDTIME Qty: 90 3RF potassium chloride 10 mEq capsule, extended release 10 meq PO DAILY Qty: 90 3RF valacyclovir 500 mg tablet 500 mg PO DAILY Qty: 90 3RF hydrochlorothiazide 25 mg tablet 12.5 mg PO DAILY Qty: 45 3RF latanoprost 0.005 % Drops 1 drp EYE-BOTH BEDTIME aspirin 81 mg Tablet,Delayed Release (Dr/Ec) 81 mg PO BID Qty: 60 0RF Referrals: Luis Henderson MD [Primary Care Provider] - Stand Alone Forms: Patient Portal/API/Survey
[2025-02-11] MEDS: ERYTHROMYCIN OPHTH 1 GM OINT 1 APPLIC EYE-BOTH (11:56)
[2025-02-11] MEDS: PROPARACAINE 0.5% OPHTH SOL 1 DROPS EYE-BOTH (11:57)
[2025-02-11] MEDS: FLUORESCEIN 1 MG STRIP EYE-BOTH (11:57)
[2025-02-11 13:39] VITALS: BP 204/89; PULSE 65; RESP 16; O2SAT 100
== END 2025-02-11 13:39 | disposition home or self-care (01) ==
PROVIDERS: Emergency Provider Emergency Medicine; PCP Internal Medicine
DX: T15.01XA Foreign body in cornea, right eye, initial encounter (principal)
CPT/HCPCS: 99282

== ENCOUNTER → 2025-04-29 13:22 | Outpatient (CLI) | payer MEDICARE, SELFPAY ==
[2019-10-03 16:59] VITALS: BMI 26.6
[2025-04-29 14:19] LABS: Aspartate Aminotransferase 35 IU/L (14-36); BUN Creatinine Ratio 22.4 (6-22); Blood Urea Nitrogen 13 mg/dL (7-17); Calcium 9.4 mg/dL (8.4-10.2); Carbon Dioxide 23 mmol/L (22-32); Chloride 95 mmol/L (98-107); Cholesterol 159 mg/dL (140-199); Estimated Glomerular Filt Rate > 60 mL/min (>60); Glucose 91 mg/dL (70-99); HDL Cholesterol 46 mg/dL (40-60); HEMOLYSIS 18 (0-50); LDL Cholesterol Calculated 75 mg/dL (<100); Potassium 4.4 mmol/L (3.4-5.1); Sodium 128 mmol/L (137-145); Triglycerides 189 mg/dL (35-150)
== END ==
LOC: LAB 13:24
PROVIDERS: PCP Internal Medicine; Referring Provider Internal Medicine; Visit Provider Internal Medicine
DX: I10 Essential (primary) hypertension (principal); E78.2 Mixed hyperlipidemia
CPT/HCPCS: 36415; 80048; 80061; 84450